=== PATIENT | male | born 1965 | race Caucasian/White ===

== ENCOUNTER 2017-08-20 09:15 | Inpatient (IN) | payer OTHER ==
[2017-08-20 11:50] VITALS: BMI 25.9
--- NOTE | 2017-08-20 12:50 | HP ---
COWS - Scale Resting Pulse: 0= [place] 80 or Below Sweatin=Flushed/Facial Moisture Restless Observation: 3= Extraneous Movement Pupil Size: 2= Moderately Dilated Bone or Joint Aches: 2= Severe Diffuse Aches Runny Nose/ Eye Tearin= Runny Nose/Eyes GI Upset > 30mins: 3= Vomiting/Diarrhea Tremor Observation: 2= Slight Tremor Visible Yawning Observation: 2= >3x During Session Anxiety or Irritability: 2=Irritable/Anxious Goose Flesh Skin: 0=Smooth Skin COWS Score: 20 Admission ROS S - HPI Chief Complaint: I NEED HELP TO STOP USING HEROIN Allergies/Adverse Reactions: Allergies Allergy/AdvReac Type Severity Reaction Status Date / Time No Known Allergies Allergy Verified 01/20/16 09:54 History of Present Illness: THIS 52 YEARS OLD MALE WITH HEROIN DEPENDENCE,SEEKING DETOX,WITHDRAWAL SYMPTOM, LAST DETOX 2005 AT [facility] NO MAJOR MEDICAL PROBLEM NICOTINE DEPENDENCE LONGEST PERIOD OF SOBRIETY FOR 10 YEARS Exam Limitations: No Limitations - Ebola screening Have you traveled outside of the country in the last 21 days: No Have you had contact with anyone from an Ebola affected area: No Have you been sick,other than usual withdrawal symptoms: No Do you have a fever: No - Review of Systems Constitutional: Chills, Diaphoresis, Loss of Appetite, Malaise, Night Sweats, Changes in sleep, Weakness EENT: reports: Tearing, Nose Congestion Respiratory: reports: No Symptoms reported Cardiac: reports: No Symptoms Reported GI: reports: Diarrhea, Nausea, Vomiting, Abdominal cramping : reports: No Symptoms Reported Musculoskeletal: reports: No Symptoms Reported, Back Pain, Joint Pain, Muscle Pain Integumentary: reports: Dryness Neuro: reports: Headache, Tremors Endocrine: reports: No Symptoms Reported Hematology: reports: No Symptoms Reported Psychiatric: reports: No Sypmtoms Reported, Judgement Intact, Mood/Affect Appropiate, Orientated x3 Other Systems: Reviewed and Negative Patient History - Patient Medical History Hx Anemia: No Hx Asthma: No Hx Chronic Obstructive Pulmonary Disease (COPD): No Hx Cancer: No Hx Cardiac Disorders: No Hx Congestive Heart Failure: No Hx Hypertension: No Hx Hypercholesterolemia: No Hx Pacemaker: No HX Cerebrovascular Accident: No Hx Seizures: No Hx Dementia: No Hx Diabetes: No Hx Gastrointestinal Disorders: No Hx Liver Disease: No Hx Genitourinary Disorders: No Hx Sexually Transmitted Disorders: No Hx Renal Disease (ESRD): No Hx Thyroid Disease: No Hx Human Immunodeficiency Virus (HIV): No (LAST 2014 NEGATIVE) Hx Hepatitis C: No Hx Depression: No Hx Suicide Attempt: No Hx Bipolar Disorder: No Hx Schizophrenia: No Other Medical History: NO SUICIDAL,NO HOMICIDAL - Patient Surgical History Past Surgical History: Yes Hx Neurologic Surgery: No Hx Cataract Extraction: No Hx Cardiac Surgery: No Hx Lung Surgery: No Hx Breast Surgery: No Hx Breast Biopsy: No Hx Abdominal Surgery: No Hx Appendectomy: No Hx Cholecystectomy: No Hx Genitourinary Surgery: No Hx Section: No Hx Orthopedic Surgery: Yes (left wrist plates and screws IN 2015) - PPD History Previous Implant?: Yes Documented Results: Negative w/o proof Implanted On Prior [facility] Admission?: Yes PPD to be Administered?: Yes - Smoking Cessation Smoking history: Current every day smoker Have you smoked in the past 12 months: Yes Aproximately how many cigarettes per day: 30 If you are a former smoker, when did you quit?: 2004 Hx Chewing Tobacco Use: No Initiated information on smoking cessation: Yes 'Breaking Loose' booklet given: 08/20/17 - Substance & Tx. History Hx Alcohol Use: No Hx Substance Use: Yes Substance Use Type: Heroin Hx Substance Use Treatment: Yes (2005 AT [facility]) - Substances Abused Heroin Route: Inhalation Frequency: Daily Amount used: 10-15 bags Age of first use: 50 Date of Last Use: 08/19/17 Family Disease History - Family Disease History Family Disease History: Heart Disease: Father (, ), Other: Father, Mother (living, [place]), Brother (one, living, healthy) Admission Physical Exam [facility] - Vital Signs Vital Signs: Vital Signs - 24 hr 08/20/17 11:44 Temperature 98.1 F Pulse Rate 69 Respiratory 18 Rate Blood Pressure 151/91 - Physical General Appearance: Yes: Moderate Distress, Tremorous, Irritable, Sweating, Anxious HEENTM: Yes: Normal ENT Inspection, SANDIP, Pharynx Normal Respiratory: Yes: Lungs Clear, Normal Breath Sounds, No Respiratory Distress Neck: Yes: Within Normal Limits, Supple, Trachea in good position Breast: Yes: Within Normal Limits Cardiology: Yes: Within Normal Limits, Regular Rhythm, Regular Rate, S1, S2 Abdominal: Yes: Normal Bowel Sounds, Non Tender, Soft, Organomegaly Genitourinary: Yes: Within Normal Limits Back: Yes: Within Normal Limits, Normal Inspection, Muscle Spasm Musculoskeletal: Yes: Within Normal Limits, full range of Motion, Back pain, Muscle Pain Extremities: Yes: Within Normal Limits, Normal Range of Motion, Tremors Neurological: Yes: reporting process consultant II-XII NML intact, Fully Oriented, Alert, Motor Strength 5/5 Integumentary: Yes: Dry Lymphatic: Yes: Within Normal Limits - Diagnostic (1) Opioid dependence with withdrawal Status: Acute (2) Nicotine dependence Status: Acute Qualifiers: Nicotine product type: cigarettes Substance use status: in withdrawal Qualified Code(s): F17.213 - Nicotine dependence, cigarettes, with withdrawal Cleared for Admission [facility] - Detox or Rehab [facility] Level of Care: Medically Managed Detox Regimen/Protocol: Methadone [facility] Breath Alcohol Content Breath Alcohol Content: 0 Urine Drug Screen - Results Urine Drug Screen Results: OPI-Opiates
[2017-08-20] MEDS ORDERED: MAG HYDROX/AL HYDROX/SIMETH 30 ML UNIT-DOSE CUP PO PRN (12:57)
[2017-08-20] MEDS ORDERED: MENTHOL/PHENOL 1 EACH UD MM PRN (12:57)
[2017-08-20] MEDS ORDERED: P-EPHED 60MG/TRIPROLIDI 2.5MG TABLET PO PRN (12:57)
[2017-08-20] MEDS ORDERED: LOPERAMIDE HCL 2 MG CAPSULE PO PRN (12:57)
[2017-08-20] MEDS ORDERED: MAGNESIUM HYDROX 2400MG/30ML ORAL SUSPENSION 30 ML CUP PO PRN (12:57)
[2017-08-20] MEDS ORDERED: NICOTINE POLACRILEX 2 MG GUM BUC PRN (12:57)
[2017-08-20] MEDS ORDERED: guaiFENesin/D-METHORPHAN HB 10 ML UNIT-DOSE CUPS PO PRN (12:57)
[2017-08-20] MEDS ORDERED: MAGNESIUM CITRATE 300 ML BOTTLE PO PRN (12:57)
[2017-08-20] MEDS ORDERED: METHADONE HCL 10 MG TABLET (FOR DETOX USE ONLY) PO ONE ×2 (14:15→23:00)
[2017-08-20] MEDS: diazePAM 5 MG TABLET PO PRN ×2 (15:26→20:02)
[2017-08-20] MEDS: NICOTINE 21 MG/24 HOURS TOPICAL PATCH TD SCH (15:38)
--- NOTE | 2017-08-20 16:04 | EKG ---
Test Reason : Blood Pressure : / mmHG Vent. Rate : 066 BPM Atrial Rate : 066 BPM P-R Int : 162 ms QRS Dur : 094 ms QT Int : 414 ms P-R-T Axes : 069 037 031 degrees QTc Int : 434 ms NORMAL SINUS RHYTHM MODERATE VOLTAGE CRITERIA FOR LVH, MAY BE NORMAL VARIANT BORDERLINE ECG NO PREVIOUS ECGS AVAILABLE Confirmed by PERCY LAWRENCE MD ([id number]) on 08/20/2017 4:03:45 PM Referred By: Confirmed By:PERCY LAWRENCE MD
[2017-08-20] MEDS ORDERED: MELATONIN 5 MG TABLETS PO PRN (22:00)
[2017-08-20] MEDS: THIAMINE HCL 100 MG TABLET (FP) PO SCH (22:39)
[2017-08-20] MEDS: cloNIDine HCL 0.1 MG TABLET PO SCH (22:40)
[2017-08-21] MEDS ORDERED: METHADONE HCL 10 MG TABLET (FOR DETOX USE ONLY) PO ONE (10:00)
[2017-08-21] MEDS: cloNIDine HCL 0.1 MG TABLET PO SCH ×2 (10:06→22:20)
[2017-08-21] MEDS: diazePAM 5 MG TABLET PO PRN ×3 (10:06→22:19)
[2017-08-21] MEDS: CYCLOBENZAPRINE HCL 10 MG TABLET (FP) PO PRN (10:06)
[2017-08-21] MEDS: NICOTINE 21 MG/24 HOURS TOPICAL PATCH TD SCH (10:07)
[2017-08-21] MEDS: PRENATAL VITAMINS W/ FOLIC ACID TABLET (FP) PO SCH (10:07)
[2017-08-21 11:12] LABS: HEMATOCRIT 43.1 % (35.4-49); HEMOGLOBIN 14.6 GM/dL (11.7-16.9); MCH 31.1 pg (25.7-33.7); MCHC 33.8 g/dl (32.0-35.9); MEAN CELL VOLUME 92.1 fl (80-96); MEAN PLT VOLUME 9.1 fl (7.5-11.1); PLATELET COUNT 264 K/MM3 (134-434); RBC 4.68 M/mm3 (4.00-5.60); RDW 14.1 % (11.9-15.9); WHITE BLOOD COUNT 6.5 K/mm3 (4.0-10.0)
[2017-08-21 11:35] LABS: CHLORIDE 104 mmol/L (98-107); POTASSIUM 4.9 mmol/L (3.5-5.1); SODIUM 137 mmol/L (136-145)
[2017-08-21 12:01] LABS: ALBUMIN 4.2 g/dl (3.4-5.0); ANION GAP 6 (8-16); BILIRUBIN,TOTAL 0.5 mg/dL (0.2-1.0); BLOOD UREA NITROGEN 19 mg/dL (7-18); CALCIUM 9.3 mg/dL (8.5-10.1); CO2 27 mmol/L (21-32); GLUCOSE,RANDOM 86 mg/dL (74-106); SGOT/AST 25 U/L (15-37); SGPT/ALT 29 U/L (12-78); TOT PROT 7.4 g/dl (6.4-8.2)
[2017-08-21 12:13] LABS: ALK PHOS 89 U/L (45-117)
--- NOTE | 2017-08-21 15:28 | PN ---
BHS COWS - Scale Resting Pulse: 0= [place] 80 or Below Sweatin= Chills/Flushing Restless Observation: 1= Difficult to Sit Still Pupil Size: 0= Normal to Room Light Bone or Joint Aches: 0= None Runny Nose/ Eye Tearin= None GI Upset > 30mins: 1= Stomach Cramp Tremor Observation of Outstretched Hands: 2= Slight Tremor Visible Yawning Observation: 2= >3x During Session Anxiety or Irritability: 2=Irritable/Anxious Goose Flesh Skin: 3=Piloerection COWS Score: 12 BHS Progress Note (SOAP) Subjective: Tremors, H/A, Fatigue, Stomach Cramping, Sweating. Objective: PATIENT A & O X 3. NO ACUTE DISTRESS. 08/21/17 15:26 Vital Signs Temperature 96.7 F L 08/21/17 13:07 Pulse Rate 65 08/21/17 13:07 Respiratory Rate 18 08/21/17 13:07 Blood Pressure 111/73 08/21/17 13:07 O2 Sat by Pulse Oximetry (%) Laboratory Tests 08/21/17 08/21/17 06:00 06:00 WBC 6.5 RBC 4.68 Hgb 14.6 Hct 43.1 MCV 92.1 MCH 31.1 MCHC 33.8 RDW 14.1 Plt Count 264 MPV 9.1 D Sodium 137 Potassium 4.9 Chloride 104 Carbon Dioxide 27 Anion Gap 6 L BUN 19 H Creatinine 1.0 Creat Clearance w eGFR > 60 Random Glucose 86 Calcium 9.3 Total Bilirubin 0.5 D AST 25 D ALT 29 D Alkaline Phosphatase 89 Total Protein 7.4 Albumin 4.2 LABS NOTED. RPR, UA RESULTS PENDING. 08/21/17 15:27 Assessment: 08/21/17 15:26 WITHDRAWAL SYMPTOMS. Plan: CONTINUE DETOX. INCREASE DAILY PO FLUID INTAKE.
[2017-08-21] MEDS: IBUPROFEN 400 MG TABLET (FP) PO PRN (17:03)
[2017-08-21] MEDS: THIAMINE HCL 100 MG TABLET (FP) PO SCH (22:19)
[2017-08-22] MEDS: diazePAM 5 MG TABLET PO PRN ×3 (07:30→22:06)
[2017-08-22] MEDS: CYCLOBENZAPRINE HCL 10 MG TABLET (FP) PO PRN ×3 (07:30→22:04)
[2017-08-22 10:00] LABS: URINE APPEARANCE CLEAR; URINE BILIRUBIN NEGATIVE (<2.0 mg/dL); URINE BLOOD NEGATIVE (NEGATIVE); URINE COLOR YELLOW; URINE GLUCOSE (UA) NEGATIVE (NEGATIVE); URINE KETONE NEGATIVE (NEGATIVE); URINE LEUK ESTERASE NEGATIVE (NEGATIVE); URINE NITRITE NEGATIVE (NEGATIVE); URINE PROTEIN NEGATIVE (NEGATIVE); URINE UROBILINOGEN NEGATIVE mg/dL (0.2-1.0)
[2017-08-22] MEDS ORDERED: METHADONE HCL 5 MG TABLET (FOR DETOX USE ONLY) PO ONE (10:00)
[2017-08-22] MEDS: PRENATAL VITAMINS W/ FOLIC ACID TABLET (FP) PO SCH (10:26)
[2017-08-22] MEDS: cloNIDine HCL 0.1 MG TABLET PO SCH ×2 (10:26→22:03)
[2017-08-22] MEDS: ACETAMINOPHEN 325 MG TABLET (FP) PO PRN ×2 (10:27→22:04)
[2017-08-22] MEDS: NICOTINE 21 MG/24 HOURS TOPICAL PATCH TD SCH (10:27)
[2017-08-22] MEDS: hydrOXYzine PAMOATE 50 MG CAPSULE (FP) PO PRN (12:50)
[2017-08-22] MEDS: IBUPROFEN 400 MG TABLET (FP) PO PRN (12:50)
--- NOTE | 2017-08-22 15:28 | PN ---
S COWS - Scale Resting Pulse: 1= [place] 81-100 Sweatin= Chills/Flushing Restless Observation: 3= Extraneous Movement Pupil Size: 1= Pupils >than Normal Bone or Joint Aches: 2= Severe Diffuse Aches Runny Nose/ Eye Tearin= Runny Nose/Eyes GI Upset > 30mins: 2= Nausea/Diarrhea Tremor Observation of Outstretched Hands: 2= Slight Tremor Visible Yawning Observation: 1= 1-2x During Session Anxiety or Irritability: 2=Irritable/Anxious Goose Flesh Skin: 0=Smooth Skin COWS Score: 17 S Progress Note (SOAP) Subjective: Chills, fatigue, interrupted sleep, sweating Objective: 08/22/17 15:26 Last Vital Signs Temp Pulse Resp BP Pulse Ox 97.4 F L 86 18 117/83 08/22/17 14:25 08/22/17 14:25 08/22/17 14:25 08/22/17 14:25 Laboratory Tests 08/21/17 08/21/17 08/21/17 06:00 06:00 06:00 WBC 6.5 RBC 4.68 Hgb 14.6 Hct 43.1 MCV 92.1 MCH 31.1 MCHC 33.8 RDW 14.1 Plt Count 264 MPV 9.1 D Sodium 137 Potassium 4.9 Chloride 104 Carbon Dioxide 27 Anion Gap 6 L BUN 19 H Creatinine 1.0 Creat Clearance w eGFR > 60 Random Glucose 86 Calcium 9.3 Total Bilirubin 0.5 D AST 25 D ALT 29 D Alkaline Phosphatase 89 Total Protein 7.4 Albumin 4.2 Urine Color Urine Appearance Urine pH Ur Specific [place] Urine Protein Urine Glucose (UA) Urine Ketones Urine Blood Urine Nitrite Urine Bilirubin Urine Urobilinogen Ur Leukocyte Esterase RPR Titer Nonreactive 08/22/17 08:00 WBC RBC Hgb Hct MCV MCH MCHC RDW Plt Count MPV Sodium Potassium Chloride Carbon Dioxide Anion Gap BUN Creatinine Creat Clearance w eGFR Random Glucose Calcium Total Bilirubin AST ALT Alkaline Phosphatase Total Protein Albumin Urine Color Yellow Urine Appearance Clear Urine pH 6.0 Ur Specific [place] 1.026 Urine Protein Negative Urine Glucose (UA) Negative Urine Ketones Negative Urine Blood Negative Urine Nitrite Negative Urine Bilirubin Negative Urine Urobilinogen Negative Ur Leukocyte Esterase Negative RPR Titer Labs reviewed Assessment: 08/22/17 15:26 Withdrawal symptoms Plan: Continue detox Encouraged to drink more water for hydration
[2017-08-22] MEDS: THIAMINE HCL 100 MG TABLET (FP) PO SCH (22:04)
[2017-08-23] MEDS: diazePAM 5 MG TABLET PO PRN (09:55)
[2017-08-23] MEDS: cloNIDine HCL 0.1 MG TABLET PO SCH ×2 (09:55→22:12)
[2017-08-23] MEDS: PRENATAL VITAMINS W/ FOLIC ACID TABLET (FP) PO SCH (09:55)
[2017-08-23] MEDS: CYCLOBENZAPRINE HCL 10 MG TABLET (FP) PO PRN ×3 (09:56→22:12)
[2017-08-23] MEDS: IBUPROFEN 400 MG TABLET (FP) PO PRN ×2 (09:56→22:13)
[2017-08-23] MEDS: NICOTINE 21 MG/24 HOURS TOPICAL PATCH TD SCH (09:57)
[2017-08-23] MEDS ORDERED: METHADONE HCL 5 MG TABLET (FOR DETOX USE ONLY) PO ONE (10:00)
--- NOTE | 2017-08-23 11:17 | PN ---
S Progress Note (SOAP) Subjective: SLIGHT ANXIETY,SWEATS,BACK ACHE,NAUSEA,FATIGUE. Objective: 08/23/17 11:14 Vital Signs Temperature 95.3 F L 08/23/17 09:18 Pulse Rate 66 08/23/17 09:18 Respiratory Rate 18 08/23/17 09:18 Blood Pressure 125/78 08/23/17 09:18 O2 Sat by Pulse Oximetry (%) Laboratory Last Values WBC 6.5 K/mm3 (4.0-10.0) 08/21/17 06:00 RBC 4.68 M/mm3 (4.00-5.60) 08/21/17 06:00 Hgb 14.6 GM/dL (11.7-16.9) 08/21/17 06:00 Hct 43.1 % (35.4-49) 08/21/17 06:00 MCV 92.1 fl (80-96) 08/21/17 06:00 MCH 31.1 pg (25.7-33.7) 08/21/17 06:00 MCHC 33.8 g/dl (32.0-35.9) 08/21/17 06:00 RDW 14.1 % (11.9-15.9) 08/21/17 06:00 Plt Count 264 K/MM3 (134-434) 08/21/17 06:00 MPV 9.1 fl (7.5-11.1) D 08/21/17 06:00 Sodium 137 mmol/L (136-145) 08/21/17 06:00 Potassium 4.9 mmol/L (3.5-5.1) 08/21/17 06:00 Chloride 104 mmol/L (98-107) 08/21/17 06:00 Carbon Dioxide 27 mmol/L (21-32) 08/21/17 06:00 Anion Gap 6 (8-16) L 08/21/17 06:00 BUN 19 mg/dL (7-18) H 08/21/17 06:00 Creatinine 1.0 mg/dL (0.7-1.3) 08/21/17 06:00 Creat Clearance w eGFR > 60 (>60) 08/21/17 06:00 Random Glucose 86 mg/dL (74-106) 08/21/17 06:00 Calcium 9.3 mg/dL (8.5-10.1) 08/21/17 06:00 Total Bilirubin 0.5 mg/dL (0.2-1.0) D 08/21/17 06:00 AST 25 U/L (15-37) D 08/21/17 06:00 ALT 29 U/L (12-78) D 08/21/17 06:00 Alkaline Phosphatase 89 U/L (45-117) 08/21/17 06:00 Total Protein 7.4 g/dl (6.4-8.2) 08/21/17 06:00 Albumin 4.2 g/dl (3.4-5.0) 08/21/17 06:00 Urine Color Yellow 08/22/17 08:00 Urine Appearance Clear 08/22/17 08:00 Urine pH 6.0 (5.0-8.0) 08/22/17 08:00 Ur Specific [place] 1.026 (1.001-1.035) 08/22/17 08:00 Urine Protein Negative (NEGATIVE) 08/22/17 08:00 Urine Glucose (UA) Negative (NEGATIVE) 08/22/17 08:00 Urine Ketones Negative (NEGATIVE) 08/22/17 08:00 Urine Blood Negative (NEGATIVE) 08/22/17 08:00 Urine Nitrite Negative (NEGATIVE) 08/22/17 08:00 Urine Bilirubin Negative (<2.0 mg/dL) 08/22/17 08:00 Urine Urobilinogen Negative mg/dL (0.2-1.0) 08/22/17 08:00 Ur Leukocyte Esterase Negative (NEGATIVE) 08/22/17 08:00 RPR Titer Nonreactive (NONREACTIVE) 08/21/17 06:00 Assessment: 08/23/17 11:15 WITHDRAWAL SX Plan: CONTINUE DETOX
[2017-08-23] MEDS: ACETAMINOPHEN 325 MG TABLET (FP) PO PRN (14:32)
[2017-08-23] MEDS: hydrOXYzine PAMOATE 50 MG CAPSULE (FP) PO PRN ×2 (14:32→22:12)
[2017-08-23] MEDS: THIAMINE HCL 100 MG TABLET (FP) PO SCH (22:12)
[2017-08-24 09:48] VITALS: BP 103/71; PULSE 73; TEMP 95.6
[2017-08-24] MEDS ORDERED: METHADONE HCL 10 MG TABLET (FOR DETOX USE ONLY) PO ONE (10:00)
[2017-08-24] MEDS: cloNIDine HCL 0.1 MG TABLET PO SCH (10:06)
[2017-08-24] MEDS: CYCLOBENZAPRINE HCL 10 MG TABLET (FP) PO PRN (10:06)
[2017-08-24] MEDS: IBUPROFEN 400 MG TABLET (FP) PO PRN (10:07)
[2017-08-24] MEDS: PRENATAL VITAMINS W/ FOLIC ACID TABLET (FP) PO SCH (10:07)
[2017-08-24] MEDS: NICOTINE 21 MG/24 HOURS TOPICAL PATCH TD SCH ×2 (10:48→11:23)
--- NOTE | 2017-08-24 11:23 | PN ---
BHS Progress Note (SOAP) Subjective: ANXIETY,CHILLS,BACK ACHE. Objective: 08/24/17 11:22 Vital Signs Temperature 95.6 F L 08/24/17 09:46 Pulse Rate 73 08/24/17 09:46 Respiratory Rate 20 08/24/17 09:46 Blood Pressure 103/71 08/24/17 09:46 O2 Sat by Pulse Oximetry (%) Laboratory Last Values WBC 6.5 K/mm3 (4.0-10.0) 08/21/17 06:00 RBC 4.68 M/mm3 (4.00-5.60) 08/21/17 06:00 Hgb 14.6 GM/dL (11.7-16.9) 08/21/17 06:00 Hct 43.1 % (35.4-49) 08/21/17 06:00 MCV 92.1 fl (80-96) 08/21/17 06:00 MCH 31.1 pg (25.7-33.7) 08/21/17 06:00 MCHC 33.8 g/dl (32.0-35.9) 08/21/17 06:00 RDW 14.1 % (11.9-15.9) 08/21/17 06:00 Plt Count 264 K/MM3 (134-434) 08/21/17 06:00 MPV 9.1 fl (7.5-11.1) D 08/21/17 06:00 Sodium 137 mmol/L (136-145) 08/21/17 06:00 Potassium 4.9 mmol/L (3.5-5.1) 08/21/17 06:00 Chloride 104 mmol/L (98-107) 08/21/17 06:00 Carbon Dioxide 27 mmol/L (21-32) 08/21/17 06:00 Anion Gap 6 (8-16) L 08/21/17 06:00 BUN 19 mg/dL (7-18) H 08/21/17 06:00 Creatinine 1.0 mg/dL (0.7-1.3) 08/21/17 06:00 Creat Clearance w eGFR > 60 (>60) 08/21/17 06:00 Random Glucose 86 mg/dL (74-106) 08/21/17 06:00 Calcium 9.3 mg/dL (8.5-10.1) 08/21/17 06:00 Total Bilirubin 0.5 mg/dL (0.2-1.0) D 08/21/17 06:00 AST 25 U/L (15-37) D 08/21/17 06:00 ALT 29 U/L (12-78) D 08/21/17 06:00 Alkaline Phosphatase 89 U/L (45-117) 08/21/17 06:00 Total Protein 7.4 g/dl (6.4-8.2) 08/21/17 06:00 Albumin 4.2 g/dl (3.4-5.0) 08/21/17 06:00 Urine Color Yellow 08/22/17 08:00 Urine Appearance Clear 08/22/17 08:00 Urine pH 6.0 (5.0-8.0) 08/22/17 08:00 Ur Specific [place] 1.026 (1.001-1.035) 08/22/17 08:00 Urine Protein Negative (NEGATIVE) 08/22/17 08:00 Urine Glucose (UA) Negative (NEGATIVE) 08/22/17 08:00 Urine Ketones Negative (NEGATIVE) 08/22/17 08:00 Urine Blood Negative (NEGATIVE) 08/22/17 08:00 Urine Nitrite Negative (NEGATIVE) 08/22/17 08:00 Urine Bilirubin Negative (<2.0 mg/dL) 08/22/17 08:00 Urine Urobilinogen Negative mg/dL (0.2-1.0) 08/22/17 08:00 Ur Leukocyte Esterase Negative (NEGATIVE) 08/22/17 08:00 RPR Titer Nonreactive (NONREACTIVE) 08/21/17 06:00 Assessment: 08/24/17 11:22 WITHDRAWAL SX Plan: CONTINUE DETOX MOTRIN PRN FLEXERIL DIRECTED
--- NOTE | 2017-08-24 12:51 | DS ---
[facility] Detox Discharge Summary Admission Date: 08/20/17 Discharge Date: 08/24/17 - History Present History: Opioid Dependence Additional Comments: PT SIGNED OUT AMA. DECLINED TO COMPLETE DETOX. ALL EFFORTS TO ENCOURAGE PT TO COMPLETE DETOX FAILED. PT TO F/U WITH AFTERCARE. Pertinent Past History: PLEASE SEE DX BELOW. - Physical Exam Results Vital Signs: Vital Signs Temperature 95.6 F L 08/24/17 09:46 Pulse Rate 73 08/24/17 09:46 Respiratory Rate 20 08/24/17 09:46 Blood Pressure 103/71 08/24/17 09:46 O2 Sat by Pulse Oximetry (%) Pertinent Admission Physical Exam Findings: WITHDRAWAL SX Laboratory Last Values WBC 6.5 K/mm3 (4.0-10.0) 08/21/17 06:00 RBC 4.68 M/mm3 (4.00-5.60) 08/21/17 06:00 Hgb 14.6 GM/dL (11.7-16.9) 08/21/17 06:00 Hct 43.1 % (35.4-49) 08/21/17 06:00 MCV 92.1 fl (80-96) 08/21/17 06:00 MCH 31.1 pg (25.7-33.7) 08/21/17 06:00 MCHC 33.8 g/dl (32.0-35.9) 08/21/17 06:00 RDW 14.1 % (11.9-15.9) 08/21/17 06:00 Plt Count 264 K/MM3 (134-434) 08/21/17 06:00 MPV 9.1 fl (7.5-11.1) D 08/21/17 06:00 Sodium 137 mmol/L (136-145) 08/21/17 06:00 Potassium 4.9 mmol/L (3.5-5.1) 08/21/17 06:00 Chloride 104 mmol/L (98-107) 08/21/17 06:00 Carbon Dioxide 27 mmol/L (21-32) 08/21/17 06:00 Anion Gap 6 (8-16) L 08/21/17 06:00 BUN 19 mg/dL (7-18) H 08/21/17 06:00 Creatinine 1.0 mg/dL (0.7-1.3) 08/21/17 06:00 Creat Clearance w eGFR > 60 (>60) 08/21/17 06:00 Random Glucose 86 mg/dL (74-106) 08/21/17 06:00 Calcium 9.3 mg/dL (8.5-10.1) 08/21/17 06:00 Total Bilirubin 0.5 mg/dL (0.2-1.0) D 08/21/17 06:00 AST 25 U/L (15-37) D 08/21/17 06:00 ALT 29 U/L (12-78) D 08/21/17 06:00 Alkaline Phosphatase 89 U/L (45-117) 08/21/17 06:00 Total Protein 7.4 g/dl (6.4-8.2) 08/21/17 06:00 Albumin 4.2 g/dl (3.4-5.0) 08/21/17 06:00 Urine Color Yellow 08/22/17 08:00 Urine Appearance Clear 08/22/17 08:00 Urine pH 6.0 (5.0-8.0) 08/22/17 08:00 Ur Specific [place] 1.026 (1.001-1.035) 08/22/17 08:00 Urine Protein Negative (NEGATIVE) 08/22/17 08:00 Urine Glucose (UA) Negative (NEGATIVE) 08/22/17 08:00 Urine Ketones Negative (NEGATIVE) 08/22/17 08:00 Urine Blood Negative (NEGATIVE) 08/22/17 08:00 Urine Nitrite Negative (NEGATIVE) 08/22/17 08:00 Urine Bilirubin Negative (<2.0 mg/dL) 08/22/17 08:00 Urine Urobilinogen Negative mg/dL (0.2-1.0) 08/22/17 08:00 Ur Leukocyte Esterase Negative (NEGATIVE) 08/22/17 08:00 RPR Titer Nonreactive (NONREACTIVE) 08/21/17 06:00 - Treatment Hospital Course: Discharged Condition Good - Medication Discharge Medications: Ambulatory Orders Buprenorphine HCl/Naloxone HCl [Suboxone 12 mg-3 mg Sl Film] 1 each SL DAILY # 30 film MDD 1 04/28/17 Hydrochlorothiazide [Hctz -] 25 mg PO DAILY #30 tablet MDD 1 04/28/17 - Diagnosis (1) Opioid dependence with withdrawal Status: Acute (2) Nicotine dependence Status: Acute Qualifiers: Nicotine product type: cigarettes Substance use status: in withdrawal Qualified Code(s): F17.213 - Nicotine dependence, cigarettes, with withdrawal (3) HTN (hypertension) Status: Acute Qualifiers: Hypertension type: essential hypertension Qualified Code(s): I10 - Essential (primary) hypertension (4) Back ache Status: Acute Qualifiers: Back pain location: back pain in unspecified location - AMA Did Patient Leave Against Medical Advice: Yes (AMA)
[2017-08-24] MEDS ORDERED: CYCLOBENZAPRINE HCL 10 MG TABLET (FP) PO SCH (14:00)
[2017-08-25] MEDS ORDERED: METHADONE HCL 5 MG TABLET (FOR DETOX USE ONLY) PO ONE (06:00)
== END 2017-08-24 12:31 | disposition left against medical advice (07) | DRG 770 ==
LOC: YASAS 09:15 → Y3N 13:51
PROVIDERS: ADMIT Internal Medicine; ATTEND Internal Medicine
PROC: HZ2ZZZZ Detoxification Services for Substance Abuse Treatment (ICD-10-PCS; principal; 2017-08-20)
DX: F11.23 Opioid dependence with withdrawal (principal); F17.210 Nicotine dependence, cigarettes, uncomplicated; I10 Essential (primary) hypertension; M54.89 Other dorsalgia
CPT/HCPCS: 36415; 80053; 81003; 85027; 86593; 93005; 93010; J0735

== ENCOUNTER 2018-01-28 12:52 | Emergency (ER) | payer OTHER ==
[2018-01-28 13:00] VITALS: PULSE 64; TEMP 98.1; BMI 24.4
[2018-01-28] MEDS ORDERED: FLUORESCEIN NA 1 EA STRIP OD ONE (13:00)
[2018-01-28] MEDS ORDERED: TETRACAINE 0.5% HCL 0.6ML DROPPER.BOTTLE OD ONE (13:02)
[2018-01-28] MEDS ORDERED: TETRACAINE 0.5% OPHTH SOLN 2 ML BOTTLE ONE (13:03)
[2018-01-28] MEDS ORDERED: FLUORESCEIN NA 1 EA STRIP ONE (13:03)
[2018-01-28 13:15] VITALS: BP 142/99
[2018-01-28] MEDS ORDERED: CLINDAMYCIN HCL 300 MG CAPSULE PO ONE (13:19)
[2018-01-28] MEDS ORDERED: AMOXICILLIN 500 MG CAPSULE (FP) PO ONE (13:21)
[2018-01-28] MEDS ORDERED: SULFAMETHOXAZOLE/TRIMETHOPRIM 800MG/160MG D.S. TABLET PO ONE (13:21)
[2018-01-28] MEDS ORDERED: AMOX TR/POT CLAV 875MG/125MG TABLETS (FP) PO ONE (13:23)
--- NOTE | 2018-01-28 13:23 | PDOC ---
Attending Attestation - Resident Resident Name: Augusto Mcdonough - ED Attending Attestation I have performed the following: I have examined & evaluated the patient, The case was reviewed & discussed with the resident, I agree w/resident's findings & plan, Exceptions are as noted - HPI HPI: 01/28/18 13:17 52 M with R eye pain x 4 days. 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 This caused a small laceration that pt states he "sealed with glue". The wound healed well, but 4 days ago he began to notice redness in the skin around the eye. Pt denies any pain or redness in his eye. Denies pain with EOM. Denies fevers. - Physicial Exam PE: 01/28/18 13:21 "GENERAL: Awake, alert, and fully oriented, in no acute distress. HEAD: No signs of trauma EYES: + erythema and swelling to R eyelid extending inferiorly, PERRLA, EOMI, sclera anicteric, conjunctiva clear, no pain with EOM, visual acuity wnl ENT: Auricles normal inspection, hearing grossly normal, nares patent, oropharynx clear without exudates. Moist mucosa NECK: Nontender, no stepoffs, Normal ROM, supple, no lymphadenopathy, JVD, or masses LUNGS: Breath sounds equal, clear to auscultation bilaterally. No wheezes, and no crackles HEART: Regular rate and rhythm, normal S1 and S2, no murmurs, rubs or gallops ABDOMEN: Soft, nontender, normoactive bowel sounds. No guarding, no rebound. No masses EXTREMITIES: Normal range of motion, no edema. No clubbing or cyanosis. No cords, erythema, or tenderness NEUROLOGICAL: Cranial nerves II through XII intact. 5/5 strength and sensation in all extremities, Normal speech, normal gait, normal cerebellar function SKIN: Warm, Dry, normal turgor, no rashes or lesions noted." - Medical Decision Making 01/28/18 13:23 52 M with blepharitis plus possible preseptal cellulitis, possibly 2/2 prior injury. No conjunctivitis, no evidence of involvement of globe. - Fluorescein stain reveals no corneal injury - Bactrim + amoxicillin for preseptal cellulitis Pt is well appearing, with normal vitals. Clinically stable for DC at this time. I discussed the physical exam findings, ancillary test results and final diagnoses with the patient. I answered all of the patient's questions. The patient was satisfied with the care received and felt comfortable with the discharge plan and treatment plan. The patient agrees to follow up with the primary care physician within 24-72 hours.
[2018-01-28] MEDS ORDERED: AMOX TR/POT CLAV 875MG/125MG TABLETS (FP) ONE (13:26)
[2018-01-28] MEDS ORDERED: SULFAMETHOXAZOLE/TRIMETHOPRIM 800MG/160MG D.S. TABLET ONE (13:26)
--- NOTE | 2018-01-28 13:41 | PDOC ---
History of Present Illness - General Chief Complaint: Eye Problem Stated Complaint: RT EYE DISCOMFORT, SWELLING EYELID, BELOW THE EYE Time Seen by Provider: 01/28/18 12:54 Exam Limitations: No Limitations - History of Present Illness Initial Comments: 01/28/18 13:41 The patient is a 52M with a PMH of HTN who presents to the ER with R eye pain. The patient states that he dropped a mosaic picture and cut his eyebrow 1 month ago. He proceeded to clean it out and glue it back together. He states that 4 days ago, he began to feel pain on the lateral aspect of his eye. Since then, the burning pain that he describes has worsened but is not associated with any fever, chills, pain with movement of the eye, drainage, or changes in vision. He noted that today, he saw some swelling around his eye. Past History - Past Medical History Allergies/Adverse Reactions: Allergies Allergy/AdvReac Type Severity Reaction Status Date / Time No Known Allergies Allergy Verified 01/28/18 12:55 Home Medications: Ambulatory Orders Amoxicillin/Potassium Clav [Augmentin 875-125 Tablet] 1 each PO BID #14 tablet 01/28/18 Sulfamethoxazole/Trimethoprim [Bactrim Ds -] 1 tab PO BID #14 tablet 01/28/18 Anemia: No Asthma: No Cancer: No Cardiac Disorders: No CVA: No COPD: No CHF: No Dementia: No Diabetes: No GI Disorders: No Disorders: No HTN: Yes (was ob bp meds) Hypercholesterolemia: No Kidney Stones: No Liver Disease: No Psychiatric Problems: Yes (DEPRESSION) Seizures: No Thyroid Disease: No - Surgical History Abdominal Surgery: No Appendectomy: No Cardiac Surgery: No Cholecystectomy: No Lung Surgery: No Neurologic Surgery: No Orthopedic Surgery: Yes (left wrist plates and screws IN 2015) - Reproductive History Testicular Surgery: No - Suicide/Smoking/Psychosocial Hx Smoking History: Current every day smoker Have you smoked in the past 12 months: Yes Number of Cigarettes Smoked Daily: 10 If you are a former smoker, when did you quit?: 2005 Cigars Per Day: 0 Information on smoking cessation initiated: Yes 'Breaking Loose' booklet given: 01/28/18 Hx Alcohol Use: (occasional) Drug/Substance Use Hx: Yes Substance Use Type: Alcohol, Tranquilizers, Heroin Hx Substance Use Treatment: Yes (detox, [facility], suboxone) Review of Systems - Review of Systems Able to Perform ROS?: Yes Comments:: 01/28/18 13:54 GENERAL/CONSTITUTIONAL: No fever or chills. No weakness. HEAD, EYES, EARS, NOSE AND THROAT: No change in vision. No ear pain or discharge. No sore throat. CARDIOVASCULAR: No chest pain, palpitations, or lightheadedness. RESPIRATORY: No cough, wheezing, shortness of breath, or hemoptysis. GASTROINTESTINAL: No nausea, vomiting, diarrhea, constipation, or abdominal pain. MUSCULOSKELETAL: No joint or muscle swelling or pain. No neck or back pain. SKIN: No rash or lesions. NEUROLOGIC: No headache, numbness, tingling, focal weakness, loss of consciousness, or change in strength/sensation. Is the patient limited Divehi proficient: No *Physical Exam - Vital Signs Last Vital Signs Temp Pulse Resp BP Pulse Ox 98.1 F 64 18 142/99 99 01/28/18 12:52 01/28/18 12:52 01/28/18 12:52 01/28/18 13:14 01/28/18 12:52 - Physical Exam Comments: 01/28/18 13:55 GENERAL: Well developed, well nourished. Awake and alert. No acute distress. HEENT: Normocephalic, atraumatic. Hearing grossly normal. Moist mucous membranes. PERRLA, EOMI. No conjunctival pallor. Sclera are non-icteric. Wood's lamp shows now ulceration. Visual roberts intact. Normal EOM. Mild erythema and swelling around R eye. Conjunctival injection in RLQ of R eye. NECK: Supple. Full ROM. MUSCULOSKELETAL: Normal range of motion at all joints. No bony deformities or tenderness. SKIN: Warm and dry. Normal capillary refill. No rashes. No jaundice. NEUROLOGICAL: Alert, awake, appropriate. Cranial nerves 2-12 grossly intact. Normal speech. Gait is normal without ataxia. PSYCHIATRIC: Cooperative. Good eye contact. Appropriate mood and affect. ED Treatment Course - Medications Given in the ED: ED Medications Discontinued Medications Generic Name Dose Route Start Last Admin Trade Name Freq PRN Reason Stop Dose Admin Amoxicillin 875 mg 01/28/18 13:21 01/28/18 13:29 Amoxicillin - PO 01/28/18 13:22 Not Given ONCE ONE Amoxicillin/Clavulanate Potassium 1 tab 01/28/18 13:23 01/28/18 13:28 Augmentin - 875mg Tablet PO 01/28/18 13:24 1 tab ONCE ONE Administration Clindamycin HCl 300 mg 01/28/18 13:19 01/28/18 13:28 Cleocin - PO 01/28/18 13:20 Not Given ONCE ONE Fluorescein Sodium 1 ea 01/28/18 13:00 01/28/18 13:08 Fluorets - OD 01/28/18 13:01 1 ea ONCE ONE Administration Tetracaine HCl 1 drop 01/28/18 13:02 01/28/18 13:08 Tetravisc 0.5% Eye Drops - OD 01/28/18 13:03 1 drop ONCE ONE Administration Trimethoprim/Sulfamethoxazole 1 each 01/28/18 13:21 01/28/18 13:28 Bactrim Ds - PO 01/28/18 13:22 1 each ONCE ONE Administration Medical Decision Making - Medical Decision Making 01/28/18 13:57 The patient is a 52M with a PMH of untreated HTN who presents to the ER with redness and swelling around his R eye concerning for preseptal cellulitis. No pain with EOM and no visual changes. Will give abx and d/c home with ophtho and PCP f/u. The patient is also noted to have an elevated BP, which he says he used to take meds for. I have instructed him to f/u with his PCP to restart his medications. *DC/Admit/Observation/Transfer Diagnosis at time of Disposition: Pain, eye, right - Discharge Dispostion Disposition: HOME Condition at time of disposition: Stable Decision to Admit order: No - Prescriptions Prescriptions: Amoxicillin/Potassium Clav [Augmentin 875-125 Tablet] 1 each PO BID #14 tablet Sulfamethoxazole/Trimethoprim [Bactrim Ds -] 1 tab PO BID #14 tablet - Referrals Referrals: Yosef Sharma MD [Staff Physician] - - Patient Instructions Printed Discharge Instructions: DI for Eye Pain Additional Instructions: Please take your antibiotics as prescribed. Please follow up with Dr. Sharma in 2-3 days. Please follow up with your primary care doctor next week. Return to the ER if you have any vision changes, headache, or pain with moving your eye. - Post Discharge Activity
== END 2018-01-28 14:00 | disposition home or self-care (01) ==
LOC: FER 12:52
DX: H57.11 Ocular pain, right eye (principal); I10 Essential (primary) hypertension; F32.9 Major depressive disorder, single episode, unspecified; F17.210 Nicotine dependence, cigarettes, uncomplicated
CPT/HCPCS: 99282-25

== ENCOUNTER 2018-03-26 09:54 | Inpatient (IN) | payer OTHER ==
[2018-03-26 10:07] VITALS: BMI 23.7
--- NOTE | 2018-03-26 10:51 | HP ---
COWS - Scale Resting Pulse: 0= [place] 80 or Below Sweatin= Chills/Flushing Restless Observation: 1= Difficult to Sit Still Pupil Size: 0= Normal to Room Light Bone or Joint Aches: 1= Mild Discomfort Runny Nose/ Eye Tearin= Nasal Congestion GI Upset > 30mins: 1= Stomach Cramp Tremor Observation: 1= Tremor Smoot, Not Seen Yawning Observation: 1= 1-2x During Session Anxiety or Irritability: 1=Feels Anxious/Irritable Goose Flesh Skin: 0=Smooth Skin COWS Score: 8 CIWA Score - Admission Criteria [facility]AS[facility] Guidelines: Admission for Medically Managed Detox: Requires at least one of the followin. CIWA greater than 12 2. Seizures within the past 24 hours 3. Delirium tremens within the past 24 hours 4. Hallucinations within the past 24 hours 5. Acute intervention needed for co occurring medical disorder 6. Acute intervention needed for co occurring psychiatric disorder 7. Severe withdrawal that cannot be handled at a lower level of care (continued vomiting, continued diarrhea, abnormal vital signs) requiring intravenous medication and/or fluids 8. Admission ROS BHS - HPI Chief Complaint: I need to stop, I know I need help, I want to try to Vivitrol Allergies/Adverse Reactions: Allergies Allergy/AdvReac Type Severity Reaction Status Date / Time No Known Allergies Allergy Verified 03/26/18 11:46 History of Present Illness: 52 yo gentleman here for detox from opiates - no seizures or overdoses, has been able to continue to work but sees his use increasing and out of control, unable to stop on his own as gets too sick. Uses heroin first thing in the morning and through the day to 'keep going'. Interested in Vivitrol , which we discussed would not be an option until he has been opiate free for a week or two , consider rehab. Exam Limitations: Clinical Condition - Ebola screening Have you been sick,other than usual withdrawal symptoms: No - Review of Systems Constitutional: Loss of Appetite, Malaise, Night Sweats EENT: reports: Nose Congestion Respiratory: reports: No Symptoms reported Cardiac: reports: No Symptoms Reported GI: reports: Poor Appetite, Poor Fluid Intake, Indigestion : reports: Dysuria Musculoskeletal: reports: Back Pain Integumentary: reports: No Symptoms Reported Neuro: reports: Headache Endocrine: reports: No Symptoms Reported Hematology: reports: No Symptoms Reported Psychiatric: reports: Judgement Intact, Mood/Affect Appropiate, Orientated x3, Anxious Other Systems: Reviewed and Negative Patient History - Patient Medical History Hx Anemia: No Hx Asthma: No Hx Chronic Obstructive Pulmonary Disease (COPD): No Hx Cancer: No Hx Cardiac Disorders: No Hx Congestive Heart Failure: No Hx Hypertension: Yes (hx meds, none now) Hx Hypercholesterolemia: No Hx Pacemaker: No HX Cerebrovascular Accident: No Hx Seizures: No Hx Dementia: No Hx Diabetes: No Hx Gastrointestinal Disorders: No Hx Liver Disease: No Hx Genitourinary Disorders: No Hx Sexually Transmitted Disorders: No Hx Renal Disease (ESRD): No Hx Thyroid Disease: No Hx Human Immunodeficiency Virus (HIV): No (LAST 2014 NEGATIVE) Hx Hepatitis C: No Hx Depression: Yes (hx lexapro, hospitalized years ago) Hx Suicide Attempt: No Hx Bipolar Disorder: No Hx Schizophrenia: No - Patient Surgical History Past Surgical History: Yes Hx Neurologic Surgery: No Hx Cataract Extraction: No Hx Cardiac Surgery: No Hx Lung Surgery: No Hx Breast Surgery: No Hx Breast Biopsy: No Hx Abdominal Surgery: No Hx Appendectomy: No Hx Cholecystectomy: No Hx Genitourinary Surgery: No Hx Section: No Hx Orthopedic Surgery: Yes (left wrist plates and screws IN 2014) - PPD History Date: 08/22/17 Results: 0.0 - Reproductive History Patient is a Female of Child Bearing Age (11 -55 yrs old): No (male) - Smoking Cessation Smoking history: Current every day smoker Have you smoked in the past 12 months: Yes Aproximately how many cigarettes per day: 10 Cigars Per Day: 0 Hx Chewing Tobacco Use: No Initiated information on smoking cessation: Yes 'Breaking Loose' booklet given: 03/26/18 (give on floor) - Substance & Tx. History Hx Alcohol Use: No Hx Substance Use: Yes Substance Use Type: Heroin Hx Substance Use Treatment: Yes (detox, rehab, suboxone) - Substances Abused heroin Route: Inhalation Frequency: Daily Amount used: 8 bags Age of first use: 51 Date of Last Use: 03/26/18 Family Disease History - Family Disease History Family Disease History: Heart Disease: Father, Other: Father, Mother (living, [place] ), Brother (one, living, healthy), Daughter (one adult -healthy) Admission Physical Exam BHS - Vital Signs Vital Signs: Vital Signs - 24 hr 03/26/18 10:01 Temperature 96.6 F L Pulse Rate 68 Respiratory 18 Rate Blood Pressure 151/103 H - Physical General Appearance: Yes: Nourished, Appropriately Dressed, Moderate Distress, Anxious HEENTM: Yes: EOMI, Hearing grossly Normal, Normocephalic, Normal Voice, Pharynx Normal Respiratory: Yes: Normal Breath Sounds, No Respiratory Distress Neck: Yes: No masses,lesions,Nodules, Supple Breast: Yes: Breast Exam Deferred Cardiology: Yes: Regular Rhythm, Regular Rate Abdominal: Yes: Non Tender, Flat Genitourinary: Yes: Dysuria Back: Yes: Normal Inspection Musculoskeletal: Yes: full range of Motion, Gait Steady, Back pain Extremities: Yes: Normal Capillary Refill, Normal Inspection Neurological: Yes: Fully Oriented, Alert, Motor Strength 5/5, Normal Mood/Affect , Normal Response Integumentary: Yes: Normal Color, Dry, Warm Lymphatic: Yes: Within Normal Limits - Diagnostic (1) Opioid dependence with withdrawal Current Visit: Yes Status: Chronic (2) Nicotine dependence Current Visit: Yes Status: Chronic Qualifiers: Nicotine product type: cigarettes Substance use status: in withdrawal Qualified Code(s): F17.213 - Nicotine dependence, cigarettes, with withdrawal (3) Back ache Current Visit: Yes Status: Chronic Qualifiers: Back pain location: back pain in unspecified location (4) HTN (hypertension) Current Visit: Yes Status: Chronic Qualifiers: Hypertension type: essential hypertension Qualified Code(s): I10 - Essential (primary) hypertension Cleared for Admission S - Detox or Rehab [facility] Level of Care: Medically Managed Detox Regimen/Protocol: Methadone [facility] Breath Alcohol Content Breath Alcohol Content: 0 Urine Drug Screen - Results Drug Screen Negative: No Urine Drug Screen Results: OPI-Opiates
[2018-03-26] MEDS ORDERED: guaiFENesin/D-METHORPHAN HB 10 ML UNIT-DOSE CUPS PO PRN (11:02)
[2018-03-26] MEDS ORDERED: P-EPHED 60MG/TRIPROLIDI 2.5MG TABLET PO PRN (11:02)
[2018-03-26] MEDS ORDERED: ACETAMINOPHEN 325 MG TABLET (FP) PO PRN (11:02)
[2018-03-26] MEDS ORDERED: METHADONE HCL 10 MG TABLET (FOR DETOX USE ONLY) PO ONE ×2 (11:02→23:00)
[2018-03-26] MEDS ORDERED: MENTHOL/PHENOL 1 EACH UD MM PRN (11:02)
[2018-03-26] MEDS ORDERED: MAG HYDROX/AL HYDROX/SIMETH 30 ML UNIT-DOSE CUP PO PRN (11:02)
[2018-03-26] MEDS ORDERED: MAGNESIUM CITRATE 300 ML BOTTLE PO PRN (11:02)
[2018-03-26] MEDS ORDERED: LOPERAMIDE HCL 2 MG CAPSULE PO PRN (11:02)
[2018-03-26] MEDS ORDERED: MAGNESIUM HYDROX 2400MG/30ML ORAL SUSPENSION 30 ML CUP PO PRN (11:02)
[2018-03-26] MEDS: diazePAM 5 MG TABLET PO PRN ×2 (12:29→22:42)
[2018-03-26] MEDS: NICOTINE 21 MG/24 HOURS TOPICAL PATCH TD SCH (12:31)
[2018-03-26 13:57] LABS: URINE APPEARANCE CLEAR; URINE BILIRUBIN NEGATIVE (<2.0 mg/dL); URINE COLOR LTYELLOW; URINE GLUCOSE (UA) NEGATIVE (NEGATIVE); URINE KETONE NEGATIVE (NEGATIVE); URINE LEUK ESTERASE NEGATIVE (NEGATIVE); URINE NITRITE NEGATIVE (NEGATIVE); URINE PROTEIN NEGATIVE (NEGATIVE); URINE UROBILINOGEN NEGATIVE mg/dL (0.2-1.0)
[2018-03-26 14:27] LABS: URINE BACTERIA RARE /hpf (NONE SEEN); URINE MUCUS RARE
[2018-03-26] MEDS: THIAMINE HCL 100 MG TABLET (FP) PO SCH (22:42)
[2018-03-27] MEDS ORDERED: METHADONE HCL 10 MG TABLET (FOR DETOX USE ONLY) PO ONE (10:00)
[2018-03-27] MEDS: NICOTINE 21 MG/24 HOURS TOPICAL PATCH TD SCH (10:17)
[2018-03-27] MEDS: PRENATAL VITAMINS W/ FOLIC ACID TABLET (FP) PO SCH (10:17)
[2018-03-27] MEDS: diazePAM 5 MG TABLET PO PRN ×3 (10:17→22:40)
[2018-03-27] MEDS: IBUPROFEN 400 MG TABLET (FP) PO PRN (10:20)
[2018-03-27 10:52] LABS: HEMATOCRIT 43.3 % (35.4-49); HEMOGLOBIN 14.3 GM/dL (11.7-16.9); MCH 30.1 pg (25.7-33.7); MCHC 33.1 g/dl (32.0-35.9); MEAN PLT VOLUME 8.5 fl (7.5-11.1); PLATELET COUNT 238 K/MM3 (134-434); RBC 4.75 M/mm3 (4.00-5.60); RDW 13.4 % (11.9-15.9); WHITE BLOOD COUNT 6.8 K/mm3 (4.0-10.0)
[2018-03-27 10:57] LABS: ALBUMIN 3.9 g/dl (3.4-5.0); ALK PHOS 77 U/L (45-117); ANION GAP 7 MMOL/L (8-16); BILIRUBIN,TOTAL 0.6 mg/dL (0.2-1); BLOOD UREA NITROGEN 21 mg/dL (7-18); CALCIUM 8.8 mg/dL (8.5-10.1); CHLORIDE 107 mmol/L (98-107); CO2 27 mmol/L (21-32); CREATININE 0.8 mg/dL (0.55-1.3); GLUCOSE,RANDOM 86 mg/dL (74-106); POTASSIUM 4.4 mmol/L (3.5-5.1); SGOT/AST 17 U/L (15-37); SGPT/ALT 21 U/L (13-61); SODIUM 141 mmol/L (136-145); TOT PROT 6.8 g/dl (6.4-8.2)
--- NOTE | 2018-03-27 16:28 | PN ---
BHS COWS - Scale Resting Pulse: 1= [place] 81-100 Sweatin= Chills/Flushing Restless Observation: 3= Extraneous Movement Pupil Size: 0= Normal to Room Light Bone or Joint Aches: 2= Severe Diffuse Aches Runny Nose/ Eye Tearin= Runny Nose/Eyes GI Upset > 30mins: 2= Nausea/Diarrhea Tremor Observation of Outstretched Hands: 2= Slight Tremor Visible Yawning Observation: 1= 1-2x During Session Anxiety or Irritability: 2=Irritable/Anxious Goose Flesh Skin: 0=Smooth Skin COWS Score: 16 BHS Progress Note (SOAP) Subjective: Sneezing, chills, anxious, sweating, interrupted sleep Objective: 03/27/18 16:25 Last Vital Signs Temp Pulse Resp BP Pulse Ox 97.0 F L 86 18 120/82 03/27/18 10:03 03/27/18 10:03 03/27/18 10:03 03/27/18 10:03 Laboratory Tests 03/26/18 03/27/18 03/27/18 12:00 07:30 07:30 WBC 6.8 RBC 4.75 Hgb 14.3 Hct 43.3 MCV 91.0 MCH 30.1 MCHC 33.1 RDW 13.4 Plt Count 238 MPV 8.5 Sodium 141 Potassium 4.4 Chloride 107 Carbon Dioxide 27 Anion Gap 7 L BUN 21 H Creatinine 0.8 Creat Clearance w eGFR > 60 Random Glucose 86 Calcium 8.8 Total Bilirubin 0.6 AST 17 ALT 21 Alkaline Phosphatase 77 Total Protein 6.8 Albumin 3.9 Urine Color Ltyellow Urine Appearance Clear Urine pH 5.0 Ur Specific [place] 1.019 Urine Protein Negative Urine Glucose (UA) Negative Urine Ketones Negative Urine Blood 1+ H Urine Nitrite Negative Urine Bilirubin Negative Urine Urobilinogen Negative Ur Leukocyte Esterase Negative Urine WBC (Auto) <1 Urine RBC (Auto) 1 Urine Bacteria Rare Urine Mucus Rare RPR Titer 03/27/18 07:30 WBC RBC Hgb Hct MCV MCH MCHC RDW Plt Count MPV Sodium Potassium Chloride Carbon Dioxide Anion Gap BUN Creatinine Creat Clearance w eGFR Random Glucose Calcium Total Bilirubin AST ALT Alkaline Phosphatase Total Protein Albumin Urine Color Urine Appearance Urine pH Ur Specific [place] Urine Protein Urine Glucose (UA) Urine Ketones Urine Blood Urine Nitrite Urine Bilirubin Urine Urobilinogen Ur Leukocyte Esterase Urine WBC (Auto) Urine RBC (Auto) Urine Bacteria Urine Mucus RPR Titer Nonreactive Labs reviewed: BUN 21, UA abnormal Assessment: 03/27/18 16:26 Withdrawal sxs Noted with azotemia and abnormal UA Plan: Continue detox Azotemia: encouraged PO water intake Abnormal UA: repeat UA
--- NOTE | 2018-03-27 19:32 | EKG ---
Test Reason : Blood Pressure : / mmHG Vent. Rate : 050 BPM Atrial Rate : 050 BPM P-R Int : 168 ms QRS Dur : 086 ms QT Int : 438 ms P-R-T Axes : 064 045 030 degrees QTc Int : 399 ms SINUS BRADYCARDIA WITH SINUS ARRHYTHMIA OTHERWISE NORMAL ECG WHEN COMPARED WITH ECG OF 13-NOV-2017 11:19, NO SIGNIFICANT CHANGE WAS FOUND Confirmed by YULI SAINZ MD ([id number]) on 03/27/2018 7:31:34 PM Referred By: Snehal Mayer Confirmed By:YULI SAINZ MD
[2018-03-27] MEDS: THIAMINE HCL 100 MG TABLET (FP) PO SCH (22:39)
[2018-03-27] MEDS: MELATONIN 5 MG TABLETS PO PRN (22:40)
[2018-03-28] MEDS: diazePAM 5 MG TABLET PO PRN ×3 (09:48→22:17)
[2018-03-28] MEDS ORDERED: METHADONE HCL 5 MG TABLET (FOR DETOX USE ONLY) PO ONE (10:00)
[2018-03-28] MEDS: PRENATAL VITAMINS W/ FOLIC ACID TABLET (FP) PO SCH (10:48)
[2018-03-28] MEDS: IBUPROFEN 400 MG TABLET (FP) PO PRN ×2 (10:48→22:17)
[2018-03-28] MEDS: NICOTINE 21 MG/24 HOURS TOPICAL PATCH TD SCH (10:51)
[2018-03-28 14:18] LABS: URINE APPEARANCE CLEAR; URINE BILIRUBIN NEGATIVE (<2.0 mg/dL); URINE COLOR LTYELLOW; URINE GLUCOSE (UA) NEGATIVE (NEGATIVE); URINE KETONE NEGATIVE (NEGATIVE); URINE LEUK ESTERASE NEGATIVE (NEGATIVE); URINE NITRITE NEGATIVE (NEGATIVE); URINE PROTEIN NEGATIVE (NEGATIVE); URINE UROBILINOGEN NEGATIVE mg/dL (0.2-1.0)
--- NOTE | 2018-03-28 17:34 | PN ---
BHS COWS - Scale Resting Pulse: 0= [place] 80 or Below Sweatin=Flushed/Facial Moisture Restless Observation: 0= Sits Still Pupil Size: 0= Normal to Room Light Bone or Joint Aches: 1= Mild Discomfort Runny Nose/ Eye Tearin= Nasal Congestion GI Upset > 30mins: 1= Stomach Cramp Tremor Observation of Outstretched Hands: 2= Slight Tremor Visible Yawning Observation: 1= 1-2x During Session Anxiety or Irritability: 2=Irritable/Anxious Goose Flesh Skin: 0=Smooth Skin COWS Score: 10 BHS Progress Note (SOAP) Subjective: Abd pain sleep disturbance Objective: 03/28/18 17:35 A & O x 3 ambulatory Vital Signs Temperature 97.2 F L 03/28/18 13:25 Pulse Rate 54 L 03/28/18 13:25 Respiratory Rate 18 03/28/18 13:25 Blood Pressure 135/80 03/28/18 13:25 O2 Sat by Pulse Oximetry (%) Low HR Assessment: 03/28/18 17:35 withdrawal sx Plan: continue detox
[2018-03-28] MEDS: MELATONIN 5 MG TABLETS PO PRN (22:17)
[2018-03-28] MEDS: THIAMINE HCL 100 MG TABLET (FP) PO SCH (22:17)
[2018-03-29] MEDS ORDERED: METHADONE HCL 5 MG TABLET (FOR DETOX USE ONLY) PO ONE (10:00)
[2018-03-29] MEDS: IBUPROFEN 400 MG TABLET (FP) PO PRN ×2 (10:25→22:10)
[2018-03-29] MEDS: NICOTINE 21 MG/24 HOURS TOPICAL PATCH TD SCH (10:25)
[2018-03-29] MEDS: diazePAM 5 MG TABLET PO PRN (10:25)
[2018-03-29] MEDS: PRENATAL VITAMINS W/ FOLIC ACID TABLET (FP) PO SCH (10:25)
[2018-03-29] MEDS ORDERED: ESCITALOPRAM OXALATE 10 MG TABLET (FP) PO SCH (14:15)
--- NOTE | 2018-03-29 14:16 | CONSULT ---
[facility] Psychiatric Consult - Data Date of interview: 03/29/18 Admission source: [facility] Identifying data: Readmission to [facility] for this 52 y/o male seeking detoxification treatment, on , for opioid dependence. Patient is , a father of one, domiciled and self-employed. Substance Abuse History: Confirmed by the patient. Details in current [facility] report : Smoking history: Current every day smoker. Have you smoked in the past 12 months: Yes. Aproximately how many cigarettes per day: 10. Cigars Per Day: 0. Hx Chewing Tobacco Use: No. Initiated information on smoking cessation : Yes. 'Breaking Loose' booklet given: 03/26/18 (give on floor). - Substance & Tx. History. Hx Alcohol Use: No. Hx Substance Use: Yes. Substance Use Type : Heroin. Hx Substance Use Treatment: Yes (detox, rehab, suboxone). - Substances Abused. heroin. Route: Inhalation. Frequency: Daily. Amount used: 8 bags. Age of first use: 51. Date of Last Use: 03/26/18 Medical History: Patient endorses good general health. Noted history of orthosurgery on left hand (hardware in situ). Psychiatric History: No reported history of psychiatric hospitalizations. Patient indicates that he has been diagnosed with MDD and medicated with escitalopram (by his primary care physician). Saw a " therapist " in the past but dropped out of treatment more than a year ago. Mr Leonard reports that he last took lexapro 10 months ago. Patient denies history of suicide attempts. Physical/Sexual Abuse/Trauma History: Current stressor : illness of mother ( multiple sclerosis). Additional Comment: Urine Drug Screen Results: OPI-Opiates. Noted. Mental Status Exam - Mental Status Exam Alert and Oriented to: Time, Place, Person Cognitive Function: Good Patient Appearance: Well Groomed Mood: Anxious, Apprehensive, Hopeful Affect: Appropriate, Normal Range Patient Behavior: Cooperative Speech Pattern: Clear, Appropriate Voice Loudness: Normal Thought Process: Intact, Goal Oriented Thought Disorder: Not Present Hallucinations: Denies Suicidal Ideation: Denies Homicidal Ideation: Denies Insight/Judgement: Fair Sleep: Well Appetite: Good Muscle strength/Tone: Normal Gait/Station: Normal Psychiatric Findings - Problem List ([place] 1, 2,3) (1) Opioid dependence with withdrawal Current Visit: Yes Status: Acute (2) Nicotine dependence Current Visit: Yes Status: Acute Qualifiers: Nicotine product type: cigarettes Substance use status: in withdrawal Qualified Code(s): F17.213 - Nicotine dependence, cigarettes, with withdrawal (3) Substance induced mood disorder Current Visit: Yes Status: Acute (4) Adjustment disorder with depressed mood Current Visit: Yes Status: Suspected - Initial Treatment Plan Initial Treatment Plan: Psychoeducation. Sleep hygiene. Motivational rounds. Group + supportive psychotherapy. Relapse prevention measures : discussed with the patient. Supported in his plan to be maintained on WALL naltrexone (vivitrol) . Educated about side effects/benefits. Patient is interested in resuming lexapro. " I did well on that medication. I used to take 10 mg daily. I would like to get back on it ". Will restart lexapro 5 mg po daily. Patient is made aware of potential for suicidal ideation and sexual dysfunction. Conesnt (verbal ) given to senior underwriter. Observation.
--- NOTE | 2018-03-29 14:40 | PN ---
BHS Progress Note (SOAP) Subjective: Feeling weak, tremor, chills, sweating, interrupted sleep Objective: 03/29/18 14:38 Last Vital Signs Temp Pulse Resp BP Pulse Ox 96.4 F L 84 18 127/88 03/29/18 13:20 03/29/18 13:20 03/29/18 13:20 03/29/18 13:20 Laboratory Tests 03/26/18 03/27/18 03/27/18 12:00 07:30 07:30 WBC 6.8 RBC 4.75 Hgb 14.3 Hct 43.3 MCV 91.0 MCH 30.1 MCHC 33.1 RDW 13.4 Plt Count 238 MPV 8.5 Sodium 141 Potassium 4.4 Chloride 107 Carbon Dioxide 27 Anion Gap 7 L BUN 21 H Creatinine 0.8 Creat Clearance w eGFR > 60 Random Glucose 86 Calcium 8.8 Total Bilirubin 0.6 AST 17 ALT 21 Alkaline Phosphatase 77 Total Protein 6.8 Albumin 3.9 Urine Color Ltyellow Urine Appearance Clear Urine pH 5.0 Ur Specific [place] 1.019 Urine Protein Negative Urine Glucose (UA) Negative Urine Ketones Negative Urine Blood 1+ H Urine Nitrite Negative Urine Bilirubin Negative Urine Urobilinogen Negative Ur Leukocyte Esterase Negative Urine WBC (Auto) <1 Urine RBC (Auto) 1 Urine Bacteria Rare Urine Mucus Rare RPR Titer 03/27/18 03/28/18 07:30 10:30 WBC RBC Hgb Hct MCV MCH MCHC RDW Plt Count MPV Sodium Potassium Chloride Carbon Dioxide Anion Gap BUN Creatinine Creat Clearance w eGFR Random Glucose Calcium Total Bilirubin AST ALT Alkaline Phosphatase Total Protein Albumin Urine Color Ltyellow Urine Appearance Clear Urine pH 6.0 Ur Specific [place] 1.020 Urine Protein Negative Urine Glucose (UA) Negative Urine Ketones Negative Urine Blood Negative Urine Nitrite Negative Urine Bilirubin Negative Urine Urobilinogen Negative Ur Leukocyte Esterase Negative Urine WBC (Auto) Urine RBC (Auto) Urine Bacteria Urine Mucus RPR Titer Nonreactive Labs reviewed Assessment: 03/29/18 14:39 Withdrawal symptoms Plan: Continue detox Encouraged PO water intake
[2018-03-29] MEDS: THIAMINE HCL 100 MG TABLET (FP) PO SCH (22:10)
[2018-03-29] MEDS: MELATONIN 5 MG TABLETS PO PRN (22:10)
[2018-03-30] MEDS ORDERED: METHADONE HCL 10 MG TABLET (FOR DETOX USE ONLY) PO ONE (10:00)
[2018-03-30] MEDS: IBUPROFEN 400 MG TABLET (FP) PO PRN ×2 (10:29→22:11)
[2018-03-30] MEDS: PRENATAL VITAMINS W/ FOLIC ACID TABLET (FP) PO SCH (10:30)
[2018-03-30] MEDS: NICOTINE 21 MG/24 HOURS TOPICAL PATCH TD SCH (10:30)
--- NOTE | 2018-03-30 13:15 | PN ---
BHS Progress Note (SOAP) Subjective: Feeling weak, interrupted sleep Objective: 03/30/18 13:13 Last Vital Signs Temp Pulse Resp BP Pulse Ox 98.5 F 63 18 128/83 03/30/18 09:06 03/30/18 09:06 03/30/18 09:06 03/30/18 09:06 Laboratory Tests 03/26/18 03/27/18 03/27/18 12:00 07:30 07:30 WBC 6.8 RBC 4.75 Hgb 14.3 Hct 43.3 MCV 91.0 MCH 30.1 MCHC 33.1 RDW 13.4 Plt Count 238 MPV 8.5 Sodium 141 Potassium 4.4 Chloride 107 Carbon Dioxide 27 Anion Gap 7 L BUN 21 H Creatinine 0.8 Creat Clearance w eGFR > 60 Random Glucose 86 Calcium 8.8 Total Bilirubin 0.6 AST 17 ALT 21 Alkaline Phosphatase 77 Total Protein 6.8 Albumin 3.9 Urine Color Ltyellow Urine Appearance Clear Urine pH 5.0 Ur Specific [place] 1.019 Urine Protein Negative Urine Glucose (UA) Negative Urine Ketones Negative Urine Blood 1+ H Urine Nitrite Negative Urine Bilirubin Negative Urine Urobilinogen Negative Ur Leukocyte Esterase Negative Urine WBC (Auto) <1 Urine RBC (Auto) 1 Urine Bacteria Rare Urine Mucus Rare RPR Titer 03/27/18 03/28/18 07:30 10:30 WBC RBC Hgb Hct MCV MCH MCHC RDW Plt Count MPV Sodium Potassium Chloride Carbon Dioxide Anion Gap BUN Creatinine Creat Clearance w eGFR Random Glucose Calcium Total Bilirubin AST ALT Alkaline Phosphatase Total Protein Albumin Urine Color Ltyellow Urine Appearance Clear Urine pH 6.0 Ur Specific [place] 1.020 Urine Protein Negative Urine Glucose (UA) Negative Urine Ketones Negative Urine Blood Negative Urine Nitrite Negative Urine Bilirubin Negative Urine Urobilinogen Negative Ur Leukocyte Esterase Negative Urine WBC (Auto) Urine RBC (Auto) Urine Bacteria Urine Mucus RPR Titer Nonreactive Labs reviewed: bun 21 Assessment: 03/30/18 13:14 Withdrawal sxs Noted with azotemia Plan: Continue detox Azotemia: encouraged PO water intake
[2018-03-30] MEDS: ESCITALOPRAM OXALATE 10 MG TABLET (FP) PO SCH (15:26)
[2018-03-30] MEDS: MELATONIN 5 MG TABLETS PO PRN (22:10)
[2018-03-30] MEDS: THIAMINE HCL 100 MG TABLET (FP) PO SCH (22:10)
[2018-03-30 22:35] VITALS: TEMP 97
[2018-03-31] MEDS ORDERED: METHADONE HCL 5 MG TABLET (FOR DETOX USE ONLY) PO ONE (06:00)
[2018-03-31 06:45] VITALS: BP 143/82; PULSE 52
[2018-03-31] MEDS: PRENATAL VITAMINS W/ FOLIC ACID TABLET (FP) PO SCH (09:07)
[2018-03-31] MEDS: ESCITALOPRAM OXALATE 10 MG TABLET (FP) PO SCH (09:08)
--- NOTE | 2018-03-31 10:56 | DS ---
[facility] Detox Discharge Summary Admission Date: 03/26/18 Discharge Date: 03/31/18 - History Present History: Opioid Dependence Additional Comments: Patient is for discharge today. Patient is A, A, Ox3, in nad, ambulatory. Patient is stable for discharge today. He denied any complaints. Patient instructed to follow up with his PCP within 1-2 weeks. Pertinent Past History: HTN Depression Opioid dependence Nicotine dependence - Physical Exam Results Vital Signs: Vital Signs Temperature 97 F L 03/31/18 06:44 Pulse Rate 52 L 03/31/18 06:44 Respiratory Rate 18 03/31/18 06:44 Blood Pressure 143/82 03/31/18 06:44 O2 Sat by Pulse Oximetry (%) Pertinent Admission Physical Exam Findings: Withdrawal symptoms Laboratory Tests 03/26/18 03/27/18 03/27/18 12:00 07:30 07:30 WBC 6.8 RBC 4.75 Hgb 14.3 Hct 43.3 MCV 91.0 MCH 30.1 MCHC 33.1 RDW 13.4 Plt Count 238 MPV 8.5 Sodium 141 Potassium 4.4 Chloride 107 Carbon Dioxide 27 Anion Gap 7 L BUN 21 H Creatinine 0.8 Creat Clearance w eGFR > 60 Random Glucose 86 Calcium 8.8 Total Bilirubin 0.6 AST 17 ALT 21 Alkaline Phosphatase 77 Total Protein 6.8 Albumin 3.9 Urine Color Ltyellow Urine Appearance Clear Urine pH 5.0 Ur Specific [place] 1.019 Urine Protein Negative Urine Glucose (UA) Negative Urine Ketones Negative Urine Blood 1+ H Urine Nitrite Negative Urine Bilirubin Negative Urine Urobilinogen Negative Ur Leukocyte Esterase Negative Urine WBC (Auto) <1 Urine RBC (Auto) 1 Urine Bacteria Rare Urine Mucus Rare RPR Titer 03/27/18 03/28/18 07:30 10:30 WBC RBC Hgb Hct MCV MCH MCHC RDW Plt Count MPV Sodium Potassium Chloride Carbon Dioxide Anion Gap BUN Creatinine Creat Clearance w eGFR Random Glucose Calcium Total Bilirubin AST ALT Alkaline Phosphatase Total Protein Albumin Urine Color Ltyellow Urine Appearance Clear Urine pH 6.0 Ur Specific [place] 1.020 Urine Protein Negative Urine Glucose (UA) Negative Urine Ketones Negative Urine Blood Negative Urine Nitrite Negative Urine Bilirubin Negative Urine Urobilinogen Negative Ur Leukocyte Esterase Negative Urine WBC (Auto) Urine RBC (Auto) Urine Bacteria Urine Mucus RPR Titer Nonreactive Labs reviewed: azotemia noted, encouraged PO water hydration - Treatment Hospital Course: Detox Protocol Followed, Detoxed Safely, Responded well, Discharged Condition Good - Medication Discharge Medications: Ambulatory Orders Escitalopram Oxalate [Lexapro -] 5 mg PO DAILY #30 tablet 03/30/18 - Diagnosis (1) Azotemia Current Visit: Yes Status: Acute (2) Depression Current Visit: Yes Status: Chronic (3) HTN (hypertension) Current Visit: Yes Status: Chronic Qualifiers: Hypertension type: essential hypertension Qualified Code(s): I10 - Essential (primary) hypertension (4) Opioid dependence with withdrawal Current Visit: Yes Status: Acute (5) Nicotine dependence Current Visit: Yes Status: Chronic Qualifiers: Nicotine product type: cigarettes Substance use status: in withdrawal Qualified Code(s): F17.213 - Nicotine dependence, cigarettes, with withdrawal - AMA Did Patient Leave Against Medical Advice: No (F/U with your PCP within 1-2 weeks )
[2018-03-31] MEDS: NICOTINE 21 MG/24 HOURS TOPICAL PATCH TD SCH (11:14)
== END 2018-03-31 09:15 | disposition home or self-care (01) | DRG 773 ==
LOC: YASAS 09:54 → Y3N 12:03
PROC: HZ2ZZZZ Detoxification Services for Substance Abuse Treatment (ICD-10-PCS; principal; 2018-03-26)
PROC: HZ2ZZZZ Detoxification Services for Substance Abuse Treatment (ICD-10-PCS; 2018-03-26)
DX: F11.23 Opioid dependence with withdrawal (principal); F10.230 Alcohol dependence with withdrawal, uncomplicated; F13.230 Sedative, hypnotic or anxiolytic dependence with withdrawal, uncomplicated; F17.213 Nicotine dependence, cigarettes, with withdrawal; F19.24 Other psychoactive substance dependence with psychoactive substance-induced mood disorder; F32.9 Major depressive disorder, single episode, unspecified; F43.21 Adjustment disorder with depressed mood; I10 Essential (primary) hypertension; M54.9 Dorsalgia, unspecified; R79.89 Other specified abnormal findings of blood chemistry; R82.90 Unspecified abnormal findings in urine
CPT/HCPCS: 36415; 80053; 81003; 81015; 85027; 86593; 93005; 93010

== ENCOUNTER 2019-07-25 20:33 | Emergency (ER) | payer OTHER ==
[2019-07-25 20:49] VITALS: BP 144/99; PULSE 71; TEMP 97.8; BMI 25.1
--- NOTE | 2019-07-25 21:37 | PDOC ---
History of Present Illness - General Chief Complaint: Respiratory Stated Complaint: COUGH,SWEATS X 2 MONTHS Time Seen by Provider: 07/25/19 20:50 - History of Present Illness Initial Comments: This 54-year-old man with a history of pneumonia (2016), intermittent bronchitis and hypertension presents with 2-1/2-month history of intermittent productive cough, wheezing, subjective fever and night sweats. He had been seen and isaiah yaya by his PMD (Dr. Sosa) several weeks ago with azithromycin Z-Felix, and more recently with oral steroids. He states that although he has had intermittent improvement in his symptoms, over the last few days he has noted occasionally purulent sputum and night sweats. He has not measured fever and has not had persistent wheezing. He has a long history of tobacco smoking and still occasionally smokes cigarettes and vapes. He states he has had a few day history of pain with swallowing and intermittent sharp pain in his anterior neck chest below his "Mike's apple" He has no history of chest pain, shortness of breath, palpitations Past History - Past Medical History Allergies/Adverse Reactions: Allergies Allergy/AdvReac Type Severity Reaction Status Date / Time No Known Allergies Allergy Verified 07/25/19 20:35 Home Medications: Ambulatory Orders Amlodipine Besylate [Norvasc -] 10 mg PO DAILY #7 tablet 12/28/18 Hydrochlorothiazide [Hctz -] 25 mg PO DAILY #7 tablet 12/28/18 Amox-Tr/K Cl [Augmentin - 875Mg Tablet] 1 tab PO BID #14 tablet 07/25/19 Mirtazapine [Remeron -] 15 mg PO DAILY 07/25/19 Anemia: No Asthma: No Cancer: No Cardiac Disorders: No CVA: No COPD: No CHF: No Dementia: No Diabetes: No GI Disorders: No Disorders: No HTN: Yes (hx meds) Hypercholesterolemia: No Kidney Stones: No Liver Disease: No Psychiatric Problems: Yes Seizures: No Thyroid Disease: No - Surgical History Abdominal Surgery: No Appendectomy: No Cardiac Surgery: No Cholecystectomy: No Lung Surgery: No Neurologic Surgery: No Orthopedic Surgery: Yes (left wrist plates and screws IN 2014) - Reproductive History Testicular Surgery: No - Psycho Social/Smoking Cessation Hx Smoking History: Current every day smoker Have you smoked in the past 12 months: Yes Number of Cigarettes Smoked Daily: 30 If you are a former smoker, when did you quit?: 2004 Cigars Per Day: 0 Information on smoking cessation initiated: Yes 'Breaking Loose' booklet given: 04/11/18 Hx Alcohol Use: Yes Drug/Substance Use Hx: No Substance Use Type: Heroin Hx Substance Use Treatment: Yes (detox, suboxone) Respiratory Specific PMHX - Complaint Specific PMHX Hx TB (Tuberculosis): No Review of Systems - Review of Systems Able to Perform ROS?: Yes Comments:: 12 point review of systems is negative except for what is noted in the history of present illness *Physical Exam - Vital Signs Last Vital Signs Temp Pulse Resp BP Pulse Ox 97.8 F 71 17 144/99 99 07/25/19 20:42 07/25/19 20:42 07/25/19 20:42 07/25/19 20:42 07/25/19 20:42 - Physical Exam GENERAL: Adult male, alert and oriented x3, speaking full sentences with no respiratory distress;T 97.8 F orally; 99% pulse oximetry on room air HEAD: Normal with no signs of trauma. EYES: PERRLA, EOMI, sclera anicteric, conjunctiva clear. ENT: Ears normal, nares patent, oropharynx clear without exudates. Dry mucous m embranes. NECK: Normal range of motion, supple without lymphadenopathy, JVD, or masses. LUNGS: Breath sounds equal, clear to auscultation bilaterally. No wheezes, and no crackles. HEART:Regular rate and rhythm, normal S1 and S2 without murmur, rub or gallop. ABDOMEN:.normal bowel sounds No guarding,tenderness or rebound.No masses No distention. EXTREMITIES: Normal range of motion, no edema. No clubbing or cyanosis. No erythema, or tenderness. NEUROLOGICAL: Cranial nerves II through XII grossly intact. Normal speech. No focal neurological deficits. MUSCULOSKELETAL: Back non-tender to palpation, no CVA tenderness SKIN: Warm, Dry, normal turgor, no rashes or lesions noted. ED Treatment Course - RADIOLOGY Radiology Studies Ordered: Category Date Time Status CHEST PA & LAT [RAD] Stat Radiology 07/25/19 20:53 Taken ED Progress Note - Progress Note Progress Note: This 54-year-old man presents with several weeks of intermittent productive cough and night sweats. Reportedly, symptoms have improved after azithromycin course as well as oral steroids only to have recurred over the last few days. Exam as noted above with patient breathing easily and having no respiratory distress. He has no fever and pulse oximetry is excellent on room air (99%). Exam reveals no abnormal breath sounds, no stridor or masses in the area where he has sharp pain (anteriorly, below thyroid cartilage) Since patient states he has not had a chest x-ray in a few years, chest x-ray, PA and lateral performed: Preliminary interpretation by me-no evidence of infiltrates, effusions or masses. COPD with expanded lung roberts and flattening of diaphragms (essentially unchanged from previous CXR in 2016) Clinical presentation most consistent with acute exacerbation of chronic bronchitis. Since he has no wheezing at this time, and he is moving air well, no nebulizer treatment or oral steroids will be given. Augmentin 875/125 will be prescribed twice a day for a week; first dose will be given here in the emergency room. Patient states that he would be amenable to follow-up with a director quality assurance (states he has never seen a "lung doctor" before). Referral information for Dr. Stephenson given to the patient. He should call the office tomorrow and follow-up within the next few days. If he has worsening shortness of breath, high fever, persistent wheezing, he should return to the emergency room. Discharge - Discharge Information Problems reviewed: Yes Clinical Impression/Diagnosis: Bronchitis, mucopurulent recurrent Condition: Stable Disposition: HOME - Additional Discharge Information Prescriptions: Amox-Tr/K Cl [Augmentin - 875Mg Tablet] 1 tab PO BID #14 tablet - Follow up/Referral Referrals: Joseph Stephenson MD [Staff Physician] - Call tomorrow - Patient Discharge Instructions Patient Printed Discharge Instructions: DI for Acute Bronchitis Additional Instructions: Rest; drink plenty of fluids Continue Zyrtec and Flonase as per previously prescribed Augmentin 875/125 twice a day for 1 week; take with meals Avoid smoking/vaping Follow-up with Dr. Stephenson; call office tomorrow to arrange follow-up within the next week Return to ER if you have shortness of breath, high fever, persistent wheezing - Post Discharge Activity
[2019-07-25] MEDS ORDERED: AMOX TR/POT CLAV 875MG/125MG TABLETS (FP) PO ONE (21:56)
[2019-07-25] MEDS ORDERED: AMOX TR/POT CLAV 875MG/125MG TABLETS (FP) ONE (22:01)
== END 2019-07-25 22:05 | disposition home or self-care (01) ==
LOC: FER 20:33
DX: J41.1 Mucopurulent chronic bronchitis (principal); F17.210 Nicotine dependence, cigarettes, uncomplicated; I10 Essential (primary) hypertension; F99 Mental disorder, not otherwise specified
CPT/HCPCS: 71046-TC-FY; 87880; 99283-25

== ENCOUNTER 2019-11-02 05:15 | Day surgery (SDC) | payer OTHER ==
[2019-11-01 14:45] VITALS: BMI 24.4
[2019-11-02] MEDS ORDERED: ACETAMINOPHEN 325 MG TABLET (FP) ONE (14:46)
[2019-11-02 14:55] VITALS: TEMP 98.2
[2019-11-02 15:49] VITALS: BP 137/79; PULSE 79
--- NOTE | 2019-11-03 15:35 | PATH ---
Cytology Non-Gynecological Report Patient Name: EITAN BONILLA [facility]. Rec. #: [id number] /Age/Gender: 1965 (Age: 54) / M Account: [id number] Location: RADIOLOGY INTER Taken: 11/02/2019 Received: 11/02/2019 Reported: 11/03/2019 Physicians: Mira Rey M.D. Norman Rosen, M.D. Specimen(s) Received STERNOCLAVICULAR JOINT COLLECTION Clinical History S/p injection for pain SC joint, sternoclavicular joint collection, r/o synovial sarcoma versus infection Final Diagnosis STERNOCLAVICULAR JOINT COLLECTION FOR CYTOLOGY: SATISFACTORY FOR EVALUATION. NEGATIVE FOR MALIGNANCY. ACUTE INFLAMMATORY EXUDATE CONSISTENT WITH ABSCESS COMPRISED OF NUMEROUS NEUTROPHILS, FEW MACROPHAGES, AND CELLULAR DEBRIS. Comment: Suggest clinical and radiologic correlation. Electronically Signed Kera Hassan M.D. Gross Description Approximately 50 cc of pink fluid received fixed in 50% alcohol. One cytofunnel prepared and Pap stained. One cell block prepared.
== END 2019-11-02 15:20 | disposition home or self-care (01) ==
LOC: JRADIR 05:15
PROVIDERS: ATTEND Family Medicine
PROC: 0W983ZX Drainage of Chest Wall, Percutaneous Approach, Diagnostic (ICD-10-PCS; principal; 2019-11-02)
DX: L02.213 Cutaneous abscess of chest wall (principal); R22.2 Localized swelling, mass and lump, trunk
CPT/HCPCS: 10030; 76098-TC-FY; 76998-TC; 87070; 87075; 87102; 87116; 87205; 87206; 87210; 87899; 88108; 88305-TC

== ENCOUNTER 2023-12-10 18:38 | Inpatient (IN) | payer OTHER ==
[2023-12-10 19:43] VITALS: BMI 24.7
[2023-12-10] MEDS ORDERED: DICYCLOMINE HCL 10 MG CAPSULE PO PRN (21:02)
[2023-12-10] MEDS ORDERED: BISMUTH SUBSALICYLATE 524 MG/30 ML PO PRN (21:02)
[2023-12-10] MEDS ORDERED: ONDANSETRON *ODT* 4 MG TABLET SL PRN (21:02)
[2023-12-10] MEDS ORDERED: LOPERAMIDE HCL 2 MG CAPSULE PO PRN (21:02)
[2023-12-10] MEDS ORDERED: NALOXONE HCL 0.4 MG/ML VIAL IM PRN (21:02)
[2023-12-10] MEDS ORDERED: BENZONATATE 200 MG CAPSULE PO PRN (21:02)
[2023-12-10] MEDS ORDERED: NICOTINE POLACRILEX 2 MG LOZENGE BC PRN (21:02)
[2023-12-10] MEDS ORDERED: guaiFENesin 600 MG TABLET.ER (FP) PO PRN (21:02)
[2023-12-10] MEDS ORDERED: BENZOCAINE/MENTHOL (CHLORASEPTIC ) LOZENGE MM PRN (21:02)
[2023-12-10] MEDS ORDERED: NALOXONE (NARCAN) HCL 4 MG/0.1 ML SPRAY NS PRN (21:02)
[2023-12-10] MEDS ORDERED: POLYETHYLENE GLYCOL (HEALTHYLAX) 3350 17 GM PACKET PO PRN (21:02)
[2023-12-10] MEDS ORDERED: ACETAMINOPHEN 325 MG TABLET (FP) PO PRN (21:02)
[2023-12-10] MEDS ORDERED: IBUPROFEN 400 MG TABLET (FP) PO PRN (21:02)
[2023-12-10] MEDS ORDERED: MAGNESIUM HYDROX 2400MG/30ML ORAL SUSPENSION 30 ML CUP PO PRN (21:02)
[2023-12-10] MEDS ORDERED: MAG HYDROX/AL HYDROX/SIMETH 30 ML UNIT-DOSE CUP PO PRN (21:02)
[2023-12-10] MEDS ORDERED: IBUPROFEN 600 MG TABLET (FP) PO PRN (21:02)
[2023-12-10] MEDS: THIAMINE 100 MG TABLET PO SCH (23:17)
[2023-12-10] MEDS: MELATONIN 5 MG TABLETS PO SCH (23:17)
[2023-12-11] MEDS: PRENATAL VITAMINS W/ FOLIC ACID TABLET (FP) PO SCH (10:20)
[2023-12-11] MEDS: NICOTINE 14 MG/24 HOURS TOPICAL PATCH TD SCH (10:24)
[2023-12-11] MEDS: METHOCARBAMOL 500 MG TABLET PO PRN (10:25)
[2023-12-11 10:51] LABS: HEMATOCRIT 34.5 % (35.4-49); HEMOGLOBIN 12.1 GM/dL (11.7-16.9); MCH 30.7 pg (25.7-33.7); MCHC 35.2 g/dl (32.0-35.9); MEAN CELL VOLUME 87.2 fl (80-96); PLATELET COUNT 292 10^3/uL (134-434); RBC 3.96 M/mm3 (4.00-5.60); RDW 13.5 % (11.9-15.9); WHITE BLOOD COUNT 4.9 K/mm3 (4.0-10.0)
[2023-12-11 11:01] LABS: CHLORIDE 106 mmol/L (98-107); POTASSIUM 3.6 mmol/L (3.5-5.1); SODIUM 142 mmol/L (136-145)
[2023-12-11] MEDS: BUPRENORPHINE/NALOXONE 0.5 MG/0.125 MG FILM SL ONE ×2 (11:12→22:26)
[2023-12-11] MEDS: methaDONE HCL 10 MG TABLET (FOR DETOX USE ONLY) PO ONE (11:13)
[2023-12-11 11:15] LABS: ANION GAP 6 mmol/L (4-13); BLOOD UREA NITROGEN 17.4 mg/dL (7-18); CO2 30 mmol/L (21-32); GLUCOSE,RANDOM 91 mg/dL (74-106)
[2023-12-11 11:17] LABS: SGPT/ALT 28 U/L (13-61)
[2023-12-11 11:18] LABS: CREATININE 0.9 mg/dL (0.55-1.3); SGOT/AST 25 U/L (15-37)
[2023-12-11 11:19] LABS: BILIRUBIN,TOTAL 0.4 mg/dL (0.2-1); TOT PROT 5.9 g/dl (6.4-8.2)
[2023-12-11 11:21] LABS: ALK PHOS 71 U/L (45-117)
[2023-12-11] MEDS: cloNIDine HCL 0.1 MG TABLET PO SCH (13:37)
[2023-12-11] MEDS: hydrOXYzine PAMOATE 25 MG CAPSULE (FP) PO PRN (15:00)
[2023-12-11] MEDS: amLODIPine BESYLATE 10 MG TABLET (FP) PO SCH (16:26)
[2023-12-12] MEDS: ESCITALOPRAM OXALATE 20 MG TABLET PO SCH (10:18)
[2023-12-12] MEDS: BUPRENORPHINE/NALOXONE 0.5 MG/0.125 MG FILM SL SCH (10:20)
[2023-12-13] MEDS: methaDONE HCL 10 MG TABLET (FOR DETOX USE ONLY) PO ONE (10:10)
[2023-12-13] MEDS: BUPRENORPHINE/NALOXONE 2 MG/0.5 MG FILM PACKET SL SCH (10:11)
[2023-12-13] MEDS: traZODone HCL 100 MG TABLET (FP) PO PRN (22:20)
[2023-12-14] MEDS: BUPRENORPHINE/NALOXONE 4 MG/1 MG FILM PACKET SL SCH (09:47)
[2023-12-15 09:16] VITALS: RESP 16
[2023-12-15] MEDS: methaDONE HCL 10 MG TABLET (FOR DETOX USE ONLY) PO ONE (10:25)
[2023-12-15] MEDS: BUPRENORPHINE/NALOXONE 8 MG/2 MG FILM PACKET SL SCH (10:25)
[2023-12-16] MEDS: BUPRENORPHINE/NALOXONE 8 MG/2 MG FILM PACKET SL SCH (09:14)
[2023-12-16 09:45] VITALS: BP 136/75; PULSE 56; TEMP 98
== END 2023-12-16 12:02 | disposition home or self-care (01) | DRG 773 ==
LOC: YASAS 18:38 → Y3N 22:13
PROVIDERS: ADMIT Allergy & Immunology; ATTEND Surgery
PROC: HZ2ZZZZ Detoxification Services for Substance Abuse Treatment (ICD-10-PCS; principal; 2023-12-10)
DX: F11.23 Opioid dependence with withdrawal (principal); F14.20 Cocaine dependence, uncomplicated; F12.20 Cannabis dependence, uncomplicated; F17.210 Nicotine dependence, cigarettes, uncomplicated; F19.94 Other psychoactive substance use, unspecified with psychoactive substance-induced mood disorder; F19.982 Other psychoactive substance use, unspecified with psychoactive substance-induced sleep disorder; I10 Essential (primary) hypertension
CPT/HCPCS: 36415; 80053; 80305; 80307; 85027; 86780; 93005; 93010

== ENCOUNTER 2024-04-07 16:26 | Inpatient (IN) | payer OTHER ==
[2024-04-07 17:07] VITALS: BMI 19.1
[2024-04-07] MEDS ORDERED: NALOXONE (NARCAN) HCL 4 MG/0.1 ML SPRAY NS PRN (18:16)
[2024-04-07] MEDS ORDERED: BENZOCAINE/MENTHOL (CHLORASEPTIC ) LOZENGE MM PRN (18:16)
[2024-04-07] MEDS ORDERED: BENZONATATE 200 MG CAPSULE PO PRN (18:16)
[2024-04-07] MEDS ORDERED: POLYETHYLENE GLYCOL (HEALTHYLAX) 3350 17 GM PACKET PO PRN (18:16)
[2024-04-07] MEDS ORDERED: MAG HYDROX/AL HYDROX/SIMETH 30 ML UNIT-DOSE CUP PO PRN (18:16)
[2024-04-07] MEDS ORDERED: MAGNESIUM HYDROX 2400MG/30ML ORAL SUSPENSION 30 ML CUP PO PRN (18:16)
[2024-04-07] MEDS ORDERED: hydrOXYzine PAMOATE 25 MG CAPSULE (FP) PO PRN (18:16)
[2024-04-07] MEDS ORDERED: methaDONE HCL 10 MG TABLET (FOR DETOX USE ONLY) ONE (18:37)
[2024-04-07] MEDS: methaDONE HCL 10 MG TABLET (FOR DETOX USE ONLY) PO ONE (18:48)
[2024-04-07] MEDS: THIAMINE 100 MG TABLET PO SCH (22:38)
[2024-04-07] MEDS: MELATONIN 5 MG TABLETS PO SCH (22:38)
[2024-04-07] MEDS: NYSTATIN 100,000 UNIT/GM TOPICAL CREAM 15 GM TUBE TP SCH (22:39)
[2024-04-08 09:21] LABS: HEMATOCRIT 33.7 % (35.4-49); HEMOGLOBIN 11.3 GM/dL (11.7-16.9); MCH 30.3 pg (25.7-33.7); MCHC 33.4 g/dl (32.0-35.9); MEAN CELL VOLUME 90.7 fl (80-96); MEAN PLT VOLUME 8.3 fl (7.5-11.1); PLATELET COUNT 234 10^3/uL (134-434); RBC 3.71 M/mm3 (4.00-5.60); RDW 14.1 % (11.9-15.9); WHITE BLOOD COUNT 5.4 K/mm3 (4.0-10.0)
[2024-04-08 09:27] LABS: CHLORIDE 106 mmol/L (98-107); POTASSIUM 4.2 mmol/L (3.5-5.1); SODIUM 143 mmol/L (136-145)
[2024-04-08 09:30] LABS: ALBUMIN 2.9 g/dl (3.4-5.0); ANION GAP 6 mmol/L (4-13); CALCIUM 8.3 mg/dL (8.5-10.1); CO2 31 mmol/L (21-32); GLUCOSE,RANDOM 86 mg/dL (74-106)
[2024-04-08 09:33] LABS: CREATININE 0.9 mg/dL (0.55-1.3); SGOT/AST 16 U/L (15-37); SGPT/ALT 18 U/L (13-61)
[2024-04-08 09:35] LABS: BILIRUBIN,TOTAL 0.3 mg/dL (0.2-1); TOT PROT 5.1 g/dl (6.4-8.2)
[2024-04-08 09:36] LABS: ALK PHOS 72 U/L (45-117)
[2024-04-08] MEDS ORDERED: HYDROCHLOROTHIAZIDE 25 MG TABLET (FP) PO SCH (10:00)
[2024-04-08] MEDS: PRENATAL VITAMINS W/ FOLIC ACID TABLET (FP) PO SCH (10:08)
[2024-04-08] MEDS: clonazePAM 0.5 MG ODT TABLETS SL PRN (10:09)
[2024-04-08] MEDS: NICOTINE 21 MG/24 HOURS TOPICAL PATCH TD SCH (10:11)
[2024-04-08] MEDS: BUPRENORPHINE/NALOXONE 0.5 MG/0.125 MG FILM SL ONE ×2 (10:33→23:10)
[2024-04-08] MEDS: methaDONE HCL 10 MG TABLET (FOR DETOX USE ONLY) PO ONE (10:35)
[2024-04-08] MEDS: IBUPROFEN 400 MG TABLET (FP) PO PRN (10:36)
[2024-04-08] MEDS: cloNIDine HCL 0.1 MG TABLET PO SCH (10:39)
[2024-04-08] MEDS: NICOTINE POLACRILEX 4 MG GUM BUC PRN (16:39)
[2024-04-08] MEDS: cloNIDine HCL 0.1 MG TABLET PO PRN (20:14)
[2024-04-08] MEDS: traZODone HCL 50 MG TABLET (FP) PO SCH (23:00)
[2024-04-08] MEDS: QUEtiapine FUMARATE 100 MG TABLET (FP) PO SCH (23:00)
[2024-04-09] MEDS ORDERED: methaDONE HCL 10 MG TABLET (FOR DETOX USE ONLY) PO ONE (10:00)
[2024-04-09] MEDS: amLODIPine BESYLATE 10 MG TABLET (FP) PO SCH (10:10)
[2024-04-09] MEDS: ESCITALOPRAM OXALATE 10 MG TABLET PO SCH (10:10)
[2024-04-09] MEDS: BUPRENORPHINE/NALOXONE 0.5 MG/0.125 MG FILM SL SCH (10:12)
[2024-04-09] MEDS: IBUPROFEN 600 MG TABLET (FP) PO PRN (10:13)
[2024-04-09] MEDS: METHOCARBAMOL 500 MG TABLET PO PRN (18:08)
[2024-04-09] MEDS: guaiFENesin 600 MG TABLET.ER (FP) PO PRN (18:08)
[2024-04-09] MEDS: ACETAMINOPHEN 325 MG TABLET (FP) PO PRN (22:03)
[2024-04-10] MEDS: methaDONE HCL 10 MG TABLET (FOR DETOX USE ONLY) PO ONE (10:15)
[2024-04-10] MEDS: BUPRENORPHINE/NALOXONE 2 MG/0.5 MG FILM PACKET SL SCH (10:16)
[2024-04-10] MEDS: ONDANSETRON *ODT* 4 MG TABLET SL PRN (13:15)
[2024-04-10] MEDS: BISMUTH SUBSALICYLATE 524 MG/30 ML PO PRN (17:33)
[2024-04-10] MEDS: DICYCLOMINE HCL 10 MG CAPSULE PO PRN (22:02)
[2024-04-11] MEDS: LOPERAMIDE HCL 2 MG CAPSULE PO PRN (09:21)
[2024-04-11] MEDS: BUPRENORPHINE/NALOXONE 4 MG/1 MG FILM PACKET SL SCH (09:35)
[2024-04-11] MEDS ORDERED: methaDONE HCL 10 MG TABLET (FOR DETOX USE ONLY) PO ONE (10:00)
[2024-04-12] MEDS: methaDONE HCL 10 MG TABLET (FOR DETOX USE ONLY) PO ONE (10:27)
[2024-04-12] MEDS: BUPRENORPHINE/NALOXONE 8 MG/2 MG FILM PACKET SL SCH (10:29)
[2024-04-12] MEDS ORDERED: PNEUMOC 20-VAL CONJ-DIP CRM/PF 0.5 ML SYRINGE IM ONE (14:47)
[2024-04-12] MEDS ORDERED: FLU VACCINE (FLULAVAL) PF 45 MCG/0.5 ML SYRINGE 2024-2025 IM ONE (14:50)
[2024-04-13] MEDS: PNEUMOC 20-VAL CONJ-DIP CRM/PF 0.5 ML SYRINGE IM ONE (09:22)
[2024-04-13] MEDS: FLU VACCINE (FLULAVAL) PF 45 MCG/0.5 ML SYRINGE 2024-2025 IM ONE (09:23)
[2024-04-13] MEDS: BUPRENORPHINE/NALOXONE 8 MG/2 MG FILM PACKET SL SCH (09:24)
[2024-04-13] MEDS: NALOXONE (NYS OPIOID OVERDOSE PROGRAM) 4 MG/0.1 ML SPRAY NS ONE (09:30)
[2024-04-14 10:16] VITALS: RESP 18
[2024-04-14 13:14] VITALS: BP 140/67; PULSE 76; TEMP 97
== END 2024-04-14 14:13 | disposition other institution (70) | DRG 773 ==
LOC: YASAS 16:26 → Y3N 18:16
PROVIDERS: ADMIT Allergy & Immunology; ATTEND Surgery
PROC: HZ2ZZZZ Detoxification Services for Substance Abuse Treatment (ICD-10-PCS; principal; 2024-04-07)
DX: F11.23 Opioid dependence with withdrawal (principal); F14.20 Cocaine dependence, uncomplicated; F12.20 Cannabis dependence, uncomplicated; F17.210 Nicotine dependence, cigarettes, uncomplicated; F19.24 Other psychoactive substance dependence with psychoactive substance-induced mood disorder; F32.A Depression, unspecified; F41.9 Anxiety disorder, unspecified; F90.9 Attention-deficit hyperactivity disorder, unspecified type; I10 Essential (primary) hypertension; B35.3 Tinea pedis; Z59.02 Unsheltered homelessness
CPT/HCPCS: 36415; 80053; 80305; 80307; 85027; 86780; 86803; 87811; 90656; 90677; G0008; G0009; Q0162

== ENCOUNTER 2024-04-14 14:17 | Inpatient (IN) | payer OTHER ==
[2024-04-14] MEDS ORDERED: NICOTINE POLACRILEX 4 MG LOZENGE BC PRN (15:18)
[2024-04-14] MEDS ORDERED: BENZONATATE 200 MG CAPSULE PO PRN (15:18)
[2024-04-14] MEDS ORDERED: NALOXONE (NARCAN) HCL 4 MG/0.1 ML SPRAY NS PRN (15:18)
[2024-04-14] MEDS ORDERED: guaiFENesin 600 MG TABLET.ER (FP) PO PRN (15:18)
[2024-04-14] MEDS ORDERED: MAGNESIUM HYDROX 2400MG/30ML ORAL SUSPENSION 30 ML CUP PO PRN (15:18)
[2024-04-14] MEDS ORDERED: BENZOCAINE/MENTHOL (CHLORASEPTIC ) LOZENGE MM PRN (15:18)
[2024-04-14] MEDS ORDERED: METHOCARBAMOL 500 MG TABLET PO PRN (15:18)
[2024-04-14] MEDS ORDERED: ACETAMINOPHEN 325 MG TABLET (FP) PO PRN (15:18)
[2024-04-14] MEDS ORDERED: NALOXONE HCL 0.4 MG/ML VIAL IVPUSH PRN (15:18)
[2024-04-14] MEDS ORDERED: POLYETHYLENE GLYCOL (HEALTHYLAX) 3350 17 GM PACKET PO PRN (15:18)
[2024-04-14] MEDS ORDERED: IBUPROFEN 400 MG TABLET (FP) PO PRN (15:18)
[2024-04-14] MEDS ORDERED: LOPERAMIDE HCL 2 MG CAPSULE PO PRN (15:18)
[2024-04-14] MEDS ORDERED: hydrOXYzine PAMOATE 25 MG CAPSULE (FP) PO PRN (15:18)
[2024-04-14] MEDS: traZODone HCL 50 MG TABLET (FP) PO SCH (21:06)
[2024-04-14] MEDS: MELATONIN 5 MG TABLETS PO SCH (21:06)
[2024-04-14] MEDS: THIAMINE 100 MG TABLET PO SCH (21:06)
[2024-04-14] MEDS: BUPRENORPHINE/NALOXONE 8 MG/2 MG FILM PACKET SL SCH (21:06)
[2024-04-15] MEDS: MAG HYDROX/AL HYDROX/SIMETH 30 ML UNIT-DOSE CUP PO PRN (06:37)
[2024-04-15] MEDS: NICOTINE POLACRILEX 4 MG GUM BUC PRN (06:38)
[2024-04-15] MEDS: ESCITALOPRAM OXALATE 10 MG TABLET PO SCH (10:03)
[2024-04-15] MEDS: amLODIPine BESYLATE 10 MG TABLET (FP) PO SCH (10:03)
[2024-04-15] MEDS: NICOTINE 21 MG/24 HOURS TOPICAL PATCH TD SCH (10:03)
[2024-04-15] MEDS: PRENATAL VITAMINS W/ FOLIC ACID TABLET (FP) PO SCH (10:04)
[2024-04-15] MEDS: QUEtiapine FUMARATE 100 MG TABLET (FP) PO SCH (21:12)
[2024-04-15] MEDS ORDERED: traZODone HCL 50 MG TABLET (FP) PO PRN (22:00)
[2024-04-15] MEDS ORDERED: QUEtiapine FUMARATE 100 MG TABLET (FP) PO SCH (22:00)
[2024-04-18] MEDS: SALICYLIC ACID (WART REMOVER) 9 ML LIQUID TP SCH (10:13)
[2024-04-19] MEDS: TOLNAFTATE 1% CREAM 15 GM TUBE TP SCH (10:04)
[2024-04-20] MEDS: IBUPROFEN 600 MG TABLET (FP) PO PRN (10:28)
[2024-04-21] MEDS: THIAMINE 100 MG TABLET PO SCH (09:57)
[2024-04-25] MEDS: CALAMINE 8% TOPICAL LOTION 177 ML BOTTLE TP PRN (13:28)
[2024-04-26] MEDS: HYDROCORTISONE 0.5% TOPICAL CREAM 30 GM TUBE TP SCH (21:33)
[2024-04-28] MEDS: hydrOXYzine PAMOATE 25 MG CAPSULE (FP) PO PRN (14:05)
[2024-05-06 09:16] LABS: PH,URINE 5.5 (5.0-8.0); URINE APPEARANCE CLEAR; URINE BILIRUBIN NEGATIVE (NEGATIVE); URINE COLOR YELLOW; URINE GLUCOSE (UA) NEGATIVE (NEGATIVE); URINE KETONE NEGATIVE (NEGATIVE); URINE LEUK ESTERASE NEGATIVE (NEGATIVE); URINE NITRITE NEGATIVE (NEGATIVE); URINE PROTEIN NEGATIVE (NEGATIVE); URINE UROBILINOGEN 0.2 mg/dL (0.2-1.0)
[2024-05-06] MEDS: BUPRENORPHINE/NALOXONE 12 MG-3 MG SL FILM PACKET SL SCH (09:21)
[2024-05-06] MEDS: NICOTINE 14 MG/24 HOURS TOPICAL PATCH TD SCH (09:52)
[2024-05-12 06:59] VITALS: TEMP 97.7
[2024-05-12 09:07] VITALS: BP 118/68; PULSE 92; RESP 18
[2024-05-12] MEDS: NALOXONE (NYS OPIOID OVERDOSE PROGRAM) 4 MG/0.1 ML SPRAY NS SCH (09:27)
== END 2024-05-12 09:27 | disposition home or self-care (01) | DRG 772 ==
LOC: YASAS 14:17 → Y3E 14:19
PROVIDERS: ADMIT Allergy & Immunology; ATTEND Psychiatry & Neurology Pain Medicine
PROC: HZ42ZZZ Group Counseling for Substance Abuse Treatment, Cognitive-Behavioral (ICD-10-PCS; principal; 2024-04-14)
DX: F11.20 Opioid dependence, uncomplicated (principal); F14.20 Cocaine dependence, uncomplicated; F17.210 Nicotine dependence, cigarettes, uncomplicated; F19.282 Other psychoactive substance dependence with psychoactive substance-induced sleep disorder; F19.24 Other psychoactive substance dependence with psychoactive substance-induced mood disorder; F90.9 Attention-deficit hyperactivity disorder, unspecified type; F41.9 Anxiety disorder, unspecified; F32.A Depression, unspecified; G47.00 Insomnia, unspecified; I10 Essential (primary) hypertension; B35.3 Tinea pedis; R21 Rash and other nonspecific skin eruption
CPT/HCPCS: 81003